=== PATIENT | male | born 1945 | race Hispanic/Latino ===

== ENCOUNTER 2017-05-23 14:08 | Emergency (ER) | payer MEDICARE, OTHER ==
--- NOTE | 2017-05-23 17:40 | Emergency Department Report ---
Entered by STEPHEN HANSEN, acting as scribe for MACK OCAMPO PA. Chief Complaint: Urogenital-Male Stated Complaint: GROIN PAIN Time Seen by Provider: 05/23/17 16:55 - HPI History of Present Illness: Patient c/o gradually worsening left testicular swelling with associated 6/10 pain for 15 days. Patient states he was recently seen at the [facility] for similar complaint, and had an US done of left testicle. Reports they found an infection in his left testicle. He notes he was prescribed antibiotics and completed them with no relief. Patient also c/o lower abdominal pain that radiates to left groin area. Notes Hx of using OTC villatoro catheters for months and he states he believes his pain is caused by catheter use. Notes he uses a catheter intermittently if he can't urinate on his own Reports 1 episode of bloody penile discharge. Patient states he believes the blood came from the sores caused by using the catheters Reports dysuria Notes appointment with [facility] urologist this month. - ROS Review of Systems: All systems are negative unless stated in the HPI above. - Exam Vital Signs: Vital Signs 05/23/17 16:24 Temperature 98.2 F Pulse Rate 86 Respiratory 20 Rate Blood Pressure 123/76 O2 Sat by Pulse 98 Oximetry Physical Exam: GENERAL: Patient is alert and oriented x 3. No apparent distress, normal gait, atraumatic. ABDOMEN: Soft, nondistended. Nontender to palpation on all quadrants. : 5 cm mass on left testicular present that is erythematous and tender to palpation. No bleeding or penile discharge noted. Left groin tenderness MSE screening note: Focused history and physical exam performed. Due to findings the following was ordered: see below ED Medical Decision Making - Medical Decision Making Patient screened by provider in triage area. Labs and US of left testicle will be ordered and sent in for patient. Patient sent to be seen by MD on main ED side. ED Disposition for MSE Condition: Stable This documentation as recorded by the scribe,STEPHEN HANSEN,accurately reflects the service I personally performed and the decisions made by DAMARIS gao OYINLOLA A, PA.
--- NOTE | 2017-05-23 18:56 | Ultrasound Report ---
FINAL REPORT PROCEDURE: US TESTICULAR DOPPLER COMP TECHNIQUE: Real-time neal-scale and color flow Doppler sonography in multiple planes of the scrotum, testicles, and epididymes was performed. Velocity spectral waveform analysis Doppler imaging of the arterial inflow and venous outflow of the testicles was performed with image documentation. [place] 52341 [place] [address]32 HISTORY: test swelling/pain COMPARISON: No prior studies are available for comparison. FINDINGS: Echogenicity of the right and left testicles appears normal. No discrete masses are identified. There is abnormal heterogeneous increased density superior aspect of the left hemiscrotum. I cannot exclude a scrotal hernia. Epididymis bilaterally appear normal with the exception of 2 millimeters cyst in the right epididymal head. No evidence of hydroceles. The right testicle measures 3.0 x 1.7 x 2.9 centimeter. The left testicle measures 2.4 x 2.1 x 3.2 centimeters. Arterial flow is visualized in both testicles with Doppler imaging. There were no venous flow patterns registered. IMPRESSION: Testicles are unremarkable. Heterogeneous density seen in the left hemiscrotum in addition to a normal-appearing left testicle. I cannot exclude a scrotal hernia. Consider CT scan of the pelvis extending to the scrotum for further evaluation Small epididymal cyst visualized on the right.
[2017-05-23 22:22] LABS: Bacteria,Urine 1+ /HPF (Negative); Bilirubin,Urine NEG (Negative); Blood,Urine NEG (Negative); Ketones,Urine NEG (Negative); Leukocyte Esterase,Urine LG (Negative); Mucus,Urine 1+ /HPF; Nitrite,Urine NEG (Negative); Protein,Urine <15 mg/dL mg/dL (Negative); Urobilinogen,Urine < 2.0 mg/dL (<2.0)
[2017-05-23 23:10] LABS: Basophils % (Auto) 0.4 % (0.0-1.8); Eosinophils % (Auto) 2.2 % (0.0-4.3); Hematocrit 37.2 % (35.5-45.6); Hemoglobin 12.2 gm/dl (11.8-15.2); Mean Corpuscular HGB Conc 33 % (32-34); Mean Corpuscular Hemoglobin 32 pg (28-32); Mean Corpuscular Volume 96 fl (84-94); Platelet Count 346 K/mm3 (140-440); Red Blood Count 3.87 M/mm3 (3.65-5.03); Red Cell Distribution Width 14.4 % (13.2-15.2); White Blood Count 7.4 K/mm3 (4.5-11.0)
[2017-05-23 23:28] LABS: Anion Gap 15 mmol/L; BUN/Creatinine Ratio 22.85; Blood Urea Nitrogen 16 mg/dL (9-20); Calcium 9.3 mg/dL (8.4-10.2); Carbon Dioxide 26 mmol/L (22-30); Chloride 102.2 mmol/L (98-107); Glucose 134 mg/dL (75-100); Potassium 3.9 mmol/L (3.6-5.0); Sodium 139 mmol/L (137-145)
--- NOTE | 2017-05-23 23:35 | Emergency Department Report ---
ED Male HPI - General Chief complaint: Urogenital-Male Stated complaint: GROIN PAIN Time Seen by Provider: 05/23/17 22:17 Source: patient Mode of arrival: Ambulatory Limitations: No Limitations - History of Present Illness Initial comments: 71-year-old male with a past medical history of hypertension and "prostate problems" presents to the hospital complaints of left testicular and inguinal pain 15 days. Pain is intermittent, rated 6/10 in intensity, worse palpation. Positive associated left scrotal swelling. Patient states he has had intermittent left lower abdomen swelling that resolved spontaneously. Last week he had a ultrasound done at the [facility] but does not know the results. Patient also completed a course of antibiotics on November 14. He is scheduled to follow with urology. Patient has a history of chronic urinary retention and has to self cath almost on a daily basis when he is unable to urinate. He complains of soreness to his urethra he thinks might of been caused by cathing. - Related Data Home Medications Medication Instructions Recorded Confirmed Last Taken Ascorbic Acid [Vitamin C] 250 mg PO QDAY 06/30/16 05/23/17 06/30/16 Previous Rx's Medication Instructions Recorded Last Taken Type Nitrofurantoin [place]/M-Cryst 100 mg PO Q12HR #14 capsule 05/24/17 Unknown Rx [Macrobid CAP] Allergies Allergy/AdvReac Type Severity Reaction Status Date / Time No Known Allergies Allergy Verified 06/30/16 08:17 ED Review of Systems ROS: Stated complaint: GROIN PAIN Other details as noted in HPI Comment: All other systems reviewed and negative Other: Constitutional: No fevers chills or weight loss Eyes: No eye pain visual changes or discharge ENT: No ear pain or throat pain Neck: Denies pain Respiratory: Denies cough wheezing shortness of breath Cardiovascular: Denies chest pain, palpitations, syncope GI: Denies nausea, vomiting, diarrhea :as per hpi Musculoskeletal: Denies back pain Skin: Denies rash, lesions, erythema Neurologic: Denies headache, numbness, weakness Psychiatric: Denies suicidal ideation, hallucinations ED Past Medical Hx - Past Medical History Hx Hypertension: Yes (controlled) Additional medical history: prostate problems - Surgical History Additional Surgical History: left knee replacement - Social History Smoking Status: Never Smoker Substance Use Type: None - Medications Home Medications: Home Medications Medication Instructions Recorded Confirmed Last Taken Type Ascorbic Acid [Vitamin C] 250 mg PO QDAY 06/30/16 05/23/17 06/30/16 History Nitrofurantoin [place]/M-Cryst 100 mg PO Q12HR #14 capsule 05/24/17 Unknown Rx [Macrobid CAP] ED Physical Exam - General Limitations: No Limitations - Other Other exam information: General: No limitations, patient is alert in no acute distress Head exam: Atraumatic, normocephalic Eyes exam: Normal appearance, pupils equal reactive to light, extraocular movements intact ENT: Moist mucous membrane, normal oropharynx Neck exam: Normal inspection, full range of motion, no meningismus nontender Respiratory exam: Clear to auscultation bilateral, no wheezes, rales, crackles Cardiovascular: Normal rate and rhythm, normal heart sounds Abdomen: Soft, nondistended, mild tenderness in the left lower suprapubic area without signs of herniation. Normal bowel sounds no rebound or guarding : Left scrotal firmness, swelling, mild tenderness and erythema. No penile lesions or discharge. Right scrotum/testicle nontender without swelling Extremity: Full range of motion normal inspection no deformity Back: Normal Inspection, full range of motion, no tenderness Neurologic: Alert, oriented x3, cranial nerves intact, no motor or sensory deficit Psychiatric: normal affect, normal mood Skin: Warm, dry, intact ED Course Vital Signs 05/23/17 05/23/17 05/23/17 16:24 22:44 22:52 Temperature 98.2 F Pulse Rate 86 75 Respiratory 20 10 L Rate Blood Pressure 123/76 185/89 O2 Sat by Pulse 98 100 100 Oximetry 05/23/17 05/23/17 05/24/17 23:00 23:20 00:56 Temperature Pulse Rate 71 70 79 Respiratory 20 18 Rate Blood Pressure 149/72 185/89 O2 Sat by Pulse 97 98 96 Oximetry 05/24/17 05/24/17 01:00 01:30 Temperature Pulse Rate 75 70 Respiratory 10 L 15 Rate Blood Pressure 136/79 149/72 O2 Sat by Pulse 98 95 Oximetry - Reevaluation(s) Reevaluation #1: 05/23/17 23:36 Patient treated with Rocephin for UTI and CT pending. Patient declined pain medication at this time ED Medical Decision Making - Lab Data Result diagrams: 05/23/17 22:40 05/23/17 22:40 Lab Results 05/23/17 05/23/17 05/23/17 Range/Units 22:00 22:40 22:40 WBC 7.4 (4.5-11.0) K/mm3 RBC 3.87 (3.65-5.03) M/mm3 Hgb 12.2 (11.8-15.2) gm/dl Hct 37.2 (35.5-45.6) % MCV 96 H (84-94) fl MCH 32 (28-32) pg MCHC 33 (32-34) % RDW 14.4 (13.2-15.2) % Plt Count 346 (140-440) K/mm3 Lymph % (Auto) 28.6 (13.4-35.0) % [place] % (Auto) 12.5 H (0.0-7.3) % Eos % (Auto) 2.2 (0.0-4.3) % Baso % (Auto) 0.4 (0.0-1.8) % Lymph # 2.1 (1.2-5.4) K/mm3 [place] # 0.9 H (0.0-0.8) K/mm3 Eos # 0.2 (0.0-0.4) K/mm3 Baso # 0.0 (0.0-0.1) K/mm3 Seg Neutrophils % 56.3 (40.0-70.0) % Seg Neutrophils # 4.2 (1.8-7.7) K/mm3 Sodium 139 (137-145) mmol/L Potassium 3.9 (3.6-5.0) mmol/L Chloride 102.2 (98-107) mmol/L Carbon Dioxide 26 (22-30) mmol/L Anion Gap 15 mmol/L BUN 16 (9-20) mg/dL Creatinine 0.7 L (0.8-1.5) mg/dL Estimated GFR > 60 ml/min BUN/Creatinine Ratio 22.85 % Glucose 134 H (75-100) mg/dL Calcium 9.3 (8.4-10.2) mg/dL Urine Color Yellow (Yellow) Urine Turbidity Clear (Clear) Urine pH 5.0 (5.0-7.0) Ur Specific [place] 1.024 (1.003-1.030) Urine Protein <15 mg/dl (Negative) mg/dL Urine Glucose (UA) Neg (Negative) mg/dL Urine Ketones Neg (Negative) mg/dL Urine Blood Neg (Negative) Urine Nitrite Neg (Negative) Urine Bilirubin Neg (Negative) Urine Urobilinogen < 2.0 (<2.0) mg/dL Ur Leukocyte Esterase Lg (Negative) Urine WBC (Auto) 23.0 H (0.0-6.0) /HPF Urine RBC (Auto) 43.0 (0.0-6.0) /HPF U Epithel Cells (Auto) 3.0 (0-13.0) /HPF Urine Bacteria (Auto) 1+ (Negative) /HPF Urine Mucus 1+ /HPF - Radiology Data Radiology results: report reviewed Ultrasound testicular Doppler: Testicles unremarkable. Heterogeneous density seen in the left hemiscrotum addition to a normal-appearing left testicle. Cannot exclude a scrotal hernia. CT recommended. Small epididymal cyst visualized CT abdomen and pelvis IV contrast: Cholelithiasis. No cholecystitis. 2 mm stone in the lower pole of the left kidney. No hydronephrosis. Bowel unremarkable. Last ate a large heterogeneous. No discrete mass. Mass in the right inguinal fossa measuring 15 mm which could be in a large pelvic lymph no. Left inguinal hernia containing fat only. - Medical Decision Making Plan to discharge patient home. Ultrasound and CT did not reveal any acute infection instead suggestive of a inguinal hernia. Pt will be provided a copy of his results to follow-up with his doctors. In addition to urology a surgeon will be recommended. ABX for uti will be prescribed. Cultures pending - Differential Diagnosis scrotal abscess, cellulitis, torsion, hernia Critical Care Time: No Critical care attestation.: If time is entered above; I have spent that time in minutes in the direct care of this critically ill patient, excluding procedure time. ED Disposition Clinical Impression: Left inguinal hernia, UTI (urinary tract infection), Prostate hypertrophy, Chronic retention of urine Disposition: - TO HOME OR SELFCARE Is pt being admited?: No Does the pt Need Aspirin: No Condition: Stable Instructions: Inguinal Hernia (ED), Urinary Tract Infection in Men (ED) Additional Instructions: Take the antibodies as prescribed for urinary tract infection. Follow-up with the surgeon and urologist provided or the doctors affiliated with [facility]. Return if symptoms worsen pain Prescriptions: Nitrofurantoin [place]/M-Cryst [Macrobid CAP] 100 mg PO Q12HR #14 capsule Referrals: your, urologist [Other] - 3-5 Days SCOTT SLOAN MD [Staff Physician] - 3-5 Days (urologist) DAWN DENNIS MD [Staff Physician] - 3-5 Days (Surgeon) Time of Disposition: 02:19
[2017-05-23] MEDS ORDERED: NACL ONE (23:40)
--- NOTE | 2017-05-24 01:17 | Cat Scan Report ---
FINAL REPORT PROCEDURE: CT ABDOMEN PELVIS W CON TECHNIQUE: Computerized axial tomography of the abdomen and pelvis was performed after the IV injection of iodinated nonionic contrast. HISTORY: left scrotal pain, swelling ? hernia COMPARISON: No prior studies are available for comparison. FINDINGS: Visualized lower thorax: No significant abnormality. Liver: Normal size and attenuation. Spleen: Normal size and attenuation. Gallbladder and biliary system: There is cholelithiasis. There is no specific evidence of acute cholecystitis. There is no biliary ductal dilatation.. Pancreas: Normal. Adrenals: Normal. Kidneys: There is a 2 millimeter stone in the lower pole of the left kidney there is no hydronephrosis.. GI tract: There is no bowel obstruction, colitis or enteritis. The appendix is normal.. Lymph nodes and mesentery: Normal. Vasculature: Normal. Bladder: Normal. Reproductive organs: Prostate is enlarged and heterogeneous. No discrete mass is seen.. Peritoneum: There is no ascites or free air. There is the mass in the right inguinal fossa measuring 15 millimeters which could be an enlarged pelvic lymph node.. Musculoskeletal structures: No significant abnormality. Other: There is a left inguinal hernia containing fat only.. IMPRESSION: There is cholelithiasis. There is no specific evidence of acute cholecystitis. There is no biliary ductal dilatation.. There is a 2 millimeter stone in the lower pole of the left kidney there is no hydronephrosis.. There is no bowel obstruction, colitis or enteritis. The appendix is normal.. Prostate is enlarged and heterogeneous. No discrete mass is seen.. There is no ascites or free air. There is the mass in the right inguinal fossa measuring 15 millimeters which could be an enlarged pelvic lymph node.. There is a left inguinal hernia containing fat only..
[2017-05-24 02:28] VITALS: BP 135/81
[2017-05-24] MEDS ORDERED: MACROBID PO ONE (02:32)
== END 2017-05-24 02:42 | disposition home or self-care (01) ==
LOC: ED 14:08
DX: K40.90 Unilateral inguinal hernia, without obstruction or gangrene, not specified as recurrent (principal); N40.1 Benign prostatic hyperplasia with lower urinary tract symptoms; I10 Essential (primary) hypertension; N39.0 Urinary tract infection, site not specified; Z96.652 Presence of left artificial knee joint
CPT/HCPCS: 36415; 74177; 80048; 81001; 85025; 87086; 93975; 99284; Q9967

== ENCOUNTER 2018-01-04 11:49 | Emergency (ER) | payer MEDICARE, OTHER ==
[2018-01-04 11:58] VITALS: BP 133/75
--- NOTE | 2018-01-04 14:29 | Emergency Department Report ---
- General Chief Complaint: Upper Respiratory Infection Stated Complaint: COLD/COUGH Time Seen by Provider: 01/04/18 14:25 Source: patient Mode of arrival: Ambulatory Limitations: No Limitations - History of Present Illness MD Complaint: fever, cough, sore throat, rhinorrhea, nasal congestion, sinus pain -: week(s) (3) Severity: moderate Severity scale (0 -10): 5 Quality: burning Consistency: constant, intermittent Improves With: OTC cold medicine, OTC nasal spray, cough suppressant Context: sick contacts Associated Symptoms: fever, cough. denies: stiff neck, rash, confusion, right sweats Treatments Prior to Arrival: "cold medicine" - Related Data Home Medications Medication Instructions Recorded Confirmed Last Taken Ascorbic Acid [Vitamin C] 250 mg PO QDAY 06/30/16 05/23/17 06/30/16 Previous Rx's Medication Instructions Recorded Last Taken Type Nitrofurantoin [place]/M-Cryst 100 mg PO Q12HR #14 capsule 05/24/17 Unknown Rx [Macrobid CAP] ALBUTEROL Inhaler [ProAir HFA 2 puff IH ONCE #1 inha 01/04/18 Unknown Rx Inhaler] Amoxicillin/Potassium Clav 1 each PO BID #14 tablet 01/04/18 Unknown Rx [Augmentin 875-125 Tablet] Benzonatate [Tessalon Perles] 100 mg PO Q8HR #30 capsule 01/04/18 Unknown Rx Prednisone [predniSONE 5 mg (6-Day 5 mg PO .TAPER #1 tab.ds.pk 01/04/18 Unknown Rx Pack, 21 Tabs)] Allergies Allergy/AdvReac Type Severity Reaction Status Date / Time No Known Allergies Allergy Verified 06/30/16 08:17 ED Review of Systems ROS: Stated complaint: COLD/COUGH Other details as noted in HPI Comment: All other systems reviewed and negative ENT: congestion Respiratory: cough. denies: shortness of breath Cardiovascular: denies: chest pain, palpitations ED Past Medical Hx - Past Medical History Previous Medical History?: Yes Hx Hypertension: Yes (controlled) Additional medical history: prostate problems, self cath @ times - Surgical History Past Surgical History?: Yes Additional Surgical History: left knee replacement - Social History Smoking Status: Never Smoker Substance Use Type: Alcohol, Non Opiate Pain, Prescribed, Other - Medications Home Medications: Home Medications Medication Instructions Recorded Confirmed Last Taken Type Ascorbic Acid [Vitamin C] 250 mg PO QDAY 06/30/16 05/23/17 06/30/16 History Nitrofurantoin [place]/M-Cryst 100 mg PO Q12HR #14 capsule 05/24/17 Unknown Rx [Macrobid CAP] ALBUTEROL Inhaler [ProAir HFA 2 puff IH ONCE #1 inha 01/04/18 Unknown Rx Inhaler] Amoxicillin/Potassium Clav 1 each PO BID #14 tablet 01/04/18 Unknown Rx [Augmentin 875-125 Tablet] Benzonatate [Tessalon Perles] 100 mg PO Q8HR #30 capsule 01/04/18 Unknown Rx Prednisone [predniSONE 5 mg (6-Day 5 mg PO .TAPER #1 tab.ds.pk 01/04/18 Unknown Rx Pack, 21 Tabs)] ED Physical Exam - General Limitations: No Limitations General appearance: alert, in no apparent distress - Head Head exam: Present: atraumatic - Respiratory Respiratory exam: Present: normal lung sounds bilaterally - Cardiovascular Cardiovascular Exam: Present: regular rate - GI/Abdominal GI/Abdominal exam: Present: soft ED Course Vital Signs 01/04/18 11:55 Temperature 97.6 F Pulse Rate 84 Respiratory 20 Rate Blood Pressure 133/75 O2 Sat by Pulse 96 Oximetry Critical care attestation.: If time is entered above; I have spent that time in minutes in the direct care of this critically ill patient, excluding procedure time. ED Disposition Clinical Impression: Acute bronchitis Qualifiers: Bronchitis organism: other organism Qualified Code(s): J20.8 - Acute bronchitis due to other specified organisms Disposition: DC-01 TO HOME OR SELFCARE Is pt being admited?: No Does the pt Need Aspirin: No Condition: Stable Instructions: Acute Bronchitis (ED) Prescriptions: ALBUTEROL Inhaler [ProAir HFA Inhaler] 2 puff IH ONCE #1 inha Amoxicillin/Potassium Clav [Augmentin 875-125 Tablet] 1 each PO BID #14 tablet Benzonatate [Tessalon Perles] 100 mg PO Q8HR #30 capsule Prednisone [predniSONE 5 mg (6-Day Pack, 21 Tabs)] 5 mg PO .TAPER #1 tab.ds.pk Referrals: PRIMARY CARE, [Primary Care Provider] - 3-5 Days
[2018-01-04] MEDS ORDERED: PROAIR IH ONE (15:30)
[2018-01-04] MEDS ORDERED: PROVENTIL IH ONE (15:30)
== END 2018-01-04 14:40 | disposition home or self-care (01) ==
LOC: ED 11:49
DX: J20.8 Acute bronchitis due to other specified organisms (principal); Z96.652 Presence of left artificial knee joint; I10 Essential (primary) hypertension
CPT/HCPCS: 99282

== ENCOUNTER 2018-01-11 09:57 | Emergency (ER) | payer MEDICARE, OTHER ==
[2018-01-11 10:30] VITALS: BP 143/88
--- NOTE | 2018-01-11 12:20 | Emergency Department Report ---
Blank Doc - Documentation Documentation: Patient is a 72-year-old male who is presenting with cough, congestion for approximately one week. Patient was here a week ago who placed on Augmentin he took his last antibiotic today but states he still is feeling ill. Patient has productive cough of yellow sputum. Denies any fever nausea vomiting. Chest x-ray will be performed to rule out worsening lung disease and will be followed about a VINAY
--- NOTE | 2018-01-11 13:07 | XRay Report ---
ROUTINE CHEST, TWO VIEWS: HISTORY: Cough. The trachea, heart, mediastinal contour, lung rojas and bony thorax are unremarkable. IMPRESSION: Unremarkable chest x-ray.
[2018-01-11] MEDS ORDERED: TESSALON PERLES PO ONE (13:26)
--- NOTE | 2018-01-11 13:31 | Emergency Department Report ---
- General Chief Complaint: Upper Respiratory Infection Stated Complaint: SINUS INFECTION Time Seen by Provider: 01/11/18 12:11 Source: patient Mode of arrival: Ambulatory Limitations: No Limitations - History of Present Illness Initial Comments: This is a 72-year-old male nontoxic, well nourished in appearance, no acute signs of distress presents to the ED with c/o of productive cough, nasal congestion, and rhinorrhea x1 week. Patient that he was here last week and received Augmentin, prednisone, albuterol and Tessalon Perles with no relief. Patient symptoms are worsening. Patient denies any chest pain, short of breath , fever, chills, nausea, vomiting, headache, stiff neck. She denies any calf pain or calf tenderness. Denies any recent travels. Patient describes productive cough as yellow mucus production. He denies any allergies or significant past medical history. MD Complaint: cough, rhinorrhea, nasal congestion -: week(s) (1) Severity: mild Consistency: constant Improves With: nothing Worsens With: nothing Associated Symptoms: rhinorrhea, nasal congestion, cough. denies: fever, chills , myalgias, diaphoresis, headache, sore throat, stiff neck, chest pain, shortness of breath, abdominal pain, nausea, vomiting, diarrhea, dysuria, rash, confusion, right sweats, weight loss, epistaxis, hoarseness, ear pain Treatments Prior to Arrival: none - Related Data Home Medications Medication Instructions Recorded Confirmed Last Taken Ascorbic Acid [Vitamin C] 250 mg PO QDAY 06/30/16 05/23/17 06/30/16 Previous Rx's Medication Instructions Recorded Last Taken Type Nitrofurantoin [place]/M-Cryst 100 mg PO Q12HR #14 capsule 05/24/17 Unknown Rx [Macrobid CAP] ALBUTEROL Inhaler [ProAir HFA 2 puff IH ONCE #1 inha 01/04/18 Unknown Rx Inhaler] Amoxicillin/Potassium Clav 1 each PO BID #14 tablet 01/04/18 Unknown Rx [Augmentin 875-125 Tablet] Benzonatate [Tessalon Perles] 100 mg PO Q8HR #30 capsule 01/04/18 Unknown Rx Prednisone [predniSONE 5 mg (6-Day 5 mg PO .TAPER #1 tab.ds.pk 01/04/18 Unknown Rx Pack, 21 Tabs)] Azithromycin [Zithromax Z-RAMILA] 250 mg PO DAILY #6 tablet 01/11/18 Unknown Rx Allergies Allergy/AdvReac Type Severity Reaction Status Date / Time No Known Allergies Allergy Verified 06/30/16 08:17 ED Review of Systems ROS: Stated complaint: SINUS INFECTION Other details as noted in HPI Constitutional: denies: chills, fever Eyes: denies: eye pain, eye discharge, vision change ENT: denies: ear pain, throat pain Respiratory: cough. denies: shortness of breath, wheezing Cardiovascular: denies: chest pain, palpitations Endocrine: no symptoms reported Gastrointestinal: denies: abdominal pain, nausea, diarrhea Genitourinary: denies: urgency, dysuria Musculoskeletal: denies: back pain, joint swelling, arthralgia Skin: denies: rash, lesions Neurological: denies: headache, weakness, paresthesias Psychiatric: denies: anxiety, depression Hematological/Lymphatic: denies: easy bleeding, easy bruising ED Past Medical Hx - Past Medical History Hx Hypertension: Yes (controlled) Additional medical history: prostate problems, self cath @ times - Surgical History Past Surgical History?: Yes Additional Surgical History: left knee replacement - Social History Smoking Status: Never Smoker Substance Use Type: None - Medications Home Medications: Home Medications Medication Instructions Recorded Confirmed Last Taken Type Ascorbic Acid [Vitamin C] 250 mg PO QDAY 06/30/16 05/23/17 06/30/16 History Nitrofurantoin [place]/M-Cryst 100 mg PO Q12HR #14 capsule 05/24/17 Unknown Rx [Macrobid CAP] ALBUTEROL Inhaler [ProAir HFA 2 puff IH ONCE #1 inha 01/04/18 Unknown Rx Inhaler] Amoxicillin/Potassium Clav 1 each PO BID #14 tablet 01/04/18 Unknown Rx [Augmentin 875-125 Tablet] Benzonatate [Tessalon Perles] 100 mg PO Q8HR #30 capsule 01/04/18 Unknown Rx Prednisone [predniSONE 5 mg (6-Day 5 mg PO .TAPER #1 tab.ds.pk 01/04/18 Unknown Rx Pack, 21 Tabs)] Azithromycin [Zithromax Z-RAMILA] 250 mg PO DAILY #6 tablet 01/11/18 Unknown Rx ED Physical Exam - General Limitations: No Limitations General appearance: alert, in no apparent distress - Head Head exam: Present: atraumatic, normocephalic - Eye Eye exam: Present: normal appearance, PERRL, EOMI Pupils: Present: normal accommodation - ENT ENT exam: Present: normal exam, normal orophraynx, mucous membranes moist, TM's normal bilaterally, normal external ear exam - Neck Neck exam: Present: normal inspection, full ROM. Absent: tenderness, meningismus, lymphadenopathy, thyromegaly - Respiratory Respiratory exam: Present: normal lung sounds bilaterally. Absent: respiratory distress, wheezes, rales, rhonchi, stridor, chest wall tenderness, accessory muscle use, decreased breath sounds, prolonged expiratory - Cardiovascular Cardiovascular Exam: Present: regular rate, normal rhythm, normal heart sounds. Absent: bradycardia, tachycardia, irregular rhythm, systolic murmur, diastolic murmur, rubs, gallop - GI/Abdominal GI/Abdominal exam: Present: soft, normal bowel sounds. Absent: distended, tenderness, guarding, rebound, rigid, diminished bowel sounds - Rectal Rectal exam: Present: deferred - Extremities Exam Extremities exam: Present: normal inspection - Back Exam Back exam: Present: normal inspection - Neurological Exam Neurological exam: Present: alert, oriented X3 - Psychiatric Psychiatric exam: Present: normal affect, normal mood - Skin Skin exam: Present: warm, dry, intact, normal color. Absent: rash ED Course Vital Signs 01/11/18 10:28 Temperature 98.4 F Pulse Rate 84 Respiratory 18 Rate Blood Pressure 143/88 O2 Sat by Pulse 96 Oximetry - Reevaluation(s) Reevaluation #1: 01/11/18 13:33 Patient is speaking in full sentences with no signs of distress noted. - Consultations Consultation #1: 01/11/18 13:33 Patient has been consulted with Dr. Barbosa about patient history, physical exam , and labs and examined and screened patient and agrees to ED plan of care and discharge plan of care. ED Medical Decision Making - Medical Decision Making this is a 72-year-old male that presents with upper respiratory infection. Patient is stable and was examined by me. Should he finished his last dose of Augmentin. Due to symptoms worsening I will treat patient with atypical upper respiratory infection with azithromycin. Chest x-ray obtained and negative. Patient stated he still has his prednisone that he is taking and does have albuterol. I instructed the patient to continue taking albuterol and prednisone as prescribed. Patient was referred and was instructed to Follow-up with a primary care doctor in 3-5 days or if symptoms worsen and continue return to emergency room as soon as possible. At time of discharge, the patient does not seem toxic or ill in appearance. No acute signs of distress noted. Patient agrees to discharge treatment plan of care. No further questions noted by the patient. Critical care attestation.: If time is entered above; I have spent that time in minutes in the direct care of this critically ill patient, excluding procedure time. ED Disposition Clinical Impression: Upper respiratory infection Qualifiers: URI type: unspecified URI Qualified Code(s): J06.9 - Acute upper respiratory infection, unspecified Disposition: TO HOME OR SELFCARE Is pt being admited?: No Does the pt Need Aspirin: No Condition: Stable Instructions: Azithromycin (By mouth), Upper Respiratory Infection (ED) Additional Instructions: Follow-up with a primary care doctor in 3-5 days or if symptoms worsen and continue return to emergency room as soon as possible. Continue taking prednisone and albuterol as prescribed previously during her visit. Prescriptions: Azithromycin [Zithromax Z-RAMILA] 250 mg PO DAILY #6 tablet Referrals: PRIMARY CAREMD [Primary Care Provider] - 3-5 Days TIANNA HOGAN MD [Staff Physician] - 3-5 Days [facility] [place] [Outside] - 3-5 Days [facility] [Outside] - 3-5 Days Forms: Work/School Release Form(ED)
== END 2018-01-11 13:51 | disposition home or self-care (01) ==
LOC: ED 09:57
DX: J06.9 Acute upper respiratory infection, unspecified (principal); I10 Essential (primary) hypertension; Z96.652 Presence of left artificial knee joint
CPT/HCPCS: 71046; 99283

== ENCOUNTER 2018-02-25 12:13 | Emergency (ER) | payer MEDICARE, OTHER ==
--- NOTE | 2018-02-25 14:19 | Emergency Department Report ---
Minor Respiratory - HPI Chief Complaint: Upper Respiratory Infection Stated Complaint: COLD/COUGH/SNEEZING Time Seen by Provider: 02/25/18 13:53 Duration: 2 weeks Pain Location: Nose (congestion) Severity: mild Minor Respiratory: Yes Rhinorrhea, Yes Able to Tolerate Fluids, Yes Cough, No Sore Throat, No Ear Pain, No Sick Contacts, No Hemoptysis, No Chest Pain, No Shortness of Breath, No Fever Other History: This is a 72 year old male that presents with cough, sneezing, and rhinorrhea for 2 weeks. Patient states he was on antibiotics last month for URI infection and felt better until 2 weeks ago. He work at [employer] and is in and out of the building the entire shift and think that caused illness. He is taking vitamin C with no improvement of symptoms. Denies chest pain, SOB, nausea/vomiting, body aches, and fever. ED Review of Systems ROS: Stated complaint: COLD/COUGH/SNEEZING Other details as noted in HPI Constitutional: denies: chills, fever ENT: congestion. denies: ear pain, throat pain, dental pain, hearing loss, epistaxis Respiratory: cough. denies: shortness of breath, wheezing Cardiovascular: denies: chest pain, palpitations, edema, syncope Gastrointestinal: denies: abdominal pain, nausea, vomiting, diarrhea Neurological: denies: headache, weakness, numbness, paresthesias Psychiatric: denies: anxiety, depression ED Past Medical Hx - Past Medical History Hx Hypertension: Yes (controlled) Additional medical history: prostate problems, self cath @ times - Surgical History Additional Surgical History: left knee replacement - Social History Smoking Status: Never Smoker Substance Use Type: None - Medications Home Medications: Home Medications Medication Instructions Recorded Confirmed Last Taken Type Ascorbic Acid [Vitamin C] 250 mg PO QDAY 06/30/16 05/23/17 06/30/16 History Nitrofurantoin [place]/M-Cryst 100 mg PO Q12HR #14 capsule 05/24/17 Unknown Rx [Macrobid CAP] ALBUTEROL Inhaler [ProAir HFA 2 puff IH ONCE #1 inha 01/04/18 Unknown Rx Inhaler] Amoxicillin/Potassium Clav 1 each PO BID #14 tablet 01/04/18 Unknown Rx [Augmentin 875-125 Tablet] Benzonatate [Tessalon Perles] 100 mg PO Q8HR #30 capsule 01/04/18 Unknown Rx Prednisone [predniSONE 5 mg (6-Day 5 mg PO .TAPER #1 tab.ds.pk 01/04/18 Unknown Rx Pack, 21 Tabs)] Azithromycin [Zithromax Z-RAMILA] 250 mg PO DAILY #6 tablet 01/11/18 Unknown Rx Benzonatate [Tessalon Perles] 100 mg PO Q8HR PRN #30 capsule 02/25/18 Unknown Rx Fluticasone [Flonase] 1 spray NS QDAY #1 bottle 02/25/18 Unknown Rx Loratadine [Claritin] 10 mg PO DAILY #30 tablet 02/25/18 Unknown Rx Minor Respiratory Exam - Exam General: Vital signs noted. No distress. Alert and acting appropriately. HEENT: Yes Moist Mucous Membranes, Yes Rhinorrhea (clear discharge), No Pharyngeal Erythema, No Pharyngeal Exudates, No Conjuctival Injection, No Frontal Tenderness, No Maxillary Tenderness Ear: Neither TM Bulge, Neither TM Erythema, Neither EAC Pain, Neither EAC Discharge Neck: Yes Supple, No Adenopathy Lungs: Yes Good Air Exchange, Yes Cough, No Wheezes, No Ronchi, No Stridor, No Labored Respirations, No Retractions, No Use of Accessory Muscles, No Other Abnormal Lung Sounds Heart: Yes Regular, No Murmur Abdomen: Yes Normal Bowel Sounds, No Tenderness, No Peritoneal Signs Skin: No Rash, No Edema Neurologic: Alert and oriented, no deficits. Musculoskeletal: Unremarkable. ED Course Vital Signs 02/25/18 12:17 Temperature 97.7 F Pulse Rate 63 Respiratory 18 Rate Blood Pressure 146/66 O2 Sat by Pulse 98 Oximetry ED Medical Decision Making - Medical Decision Making 72 y.o. male that presents with URI symptoms. Patient examined by me and stable. No distress noted. Vitals stable. Mild congestion susceptible fo allergic rhinitis with post viral cough. Discharged home. Encouraged to do supportive care for URI. Start benzonatate, flonase, and claritin. Follow up with PCP in 2-3 days. Critical care attestation.: If time is entered above; I have spent that time in minutes in the direct care of this critically ill patient, excluding procedure time. ED Disposition Clinical Impression: Post-viral cough syndrome Rhinitis Qualifiers: Rhinitis type: allergic Allergic rhinitis trigger: food Qualified Code(s): J30.5 - Allergic rhinitis due to food Disposition: DC-01 TO HOME OR SELFCARE Is pt being admited?: No Does the pt Need Aspirin: No Condition: Stable Instructions: Allergic Rhinitis (ED) Additional Instructions: Increase fluid intake and rest. Wash hands frequently. Take claritin daily as need for symptom relief. Symptoms should improve in the next 3-7 days. Avoid triggers such as pollen and smoke. Use nasal saline spray to help control congestion and rinse nasal cavity, to improve breathing. F/U with Primary Care Provider in 24-72 hours. Return to ER if fever, SOB, or difficulty breathing after 48 hours of supportive care. Prescriptions: Benzonatate [Tessalon Perles] 100 mg PO Q8HR PRN #30 capsule PRN Reason: Cough Fluticasone [Flonase] 1 spray NS QDAY #1 bottle Loratadine [Claritin] 10 mg PO DAILY #30 tablet Referrals: [facility] [Outside] - 3-5 Days [facility] [Provider Group] - 3-5 Days [facility] [Provider Group] - 3-5 Days Time of Disposition: 14:56 Print Language: KHMER
[2018-02-25 15:09] VITALS: BP 166/83
== END 2018-02-25 15:10 | disposition home or self-care (01) ==
LOC: ED 12:13
DX: J30.5 Allergic rhinitis due to food (principal); G93.3 Postviral and related fatigue syndromes; B34.9 Viral infection, unspecified; I10 Essential (primary) hypertension
CPT/HCPCS: 99282

== ENCOUNTER 2018-06-22 08:37 | Emergency (ER) | payer MEDICARE, OTHER ==
[2018-06-22 09:07] LABS: Basophils % (Auto) 0.2 % (0.0-1.8); Eosinophils # (Auto) 0.1 K/mm3 (0.0-0.4); Eosinophils % (Auto) 1.3 % (0.0-4.3); Hematocrit 39.8 % (35.5-45.6); Hemoglobin 13.6 gm/dl (11.8-15.2); Lymphocytes # (Auto) 1.7 K/mm3 (1.2-5.4); Lymphocytes % (Auto) 31.7 % (13.4-35.0); Mean Corpuscular HGB Conc 34 % (32-34); Mean Corpuscular Hemoglobin 33 pg (28-32); Mean Corpuscular Volume 95 fl (84-94); Monocytes # (Auto) 0.6 K/mm3 (0.0-0.8); Monocytes % (Auto) 10.8 % (0.0-7.3); Platelet Count 206 K/mm3 (140-440); Red Blood Count 4.18 M/mm3 (3.65-5.03); Red Cell Distribution Width 14.4 % (13.2-15.2)
[2018-06-22 09:23] LABS: BUN/Creatinine Ratio 28; Blood Urea Nitrogen 17 mg/dL (9-20); Hemolysis Index 5
--- NOTE | 2018-06-22 12:19 | Emergency Department Report ---
Chief Complaint: Chest Pain Stated Complaint: POSSIBLE STROKE Time Seen by Provider: 06/22/18 12:07 - HPI History of Present Illness: 72-year-old male presents to the emergency department with complaints of some intermittent left-sided chest pains, indigestion with increased belching , increased fatigue. All the symptoms going on for the past few weeks. He has a history of hypertension and some prostate issues. He goes to [facility] for [facility] needs. He has not taken anything for her symptoms prior to presentation. He denies any headache, slurred speech, numbness. No tobacco or illicit drug use or abuse. - ROS Review of Systems: Positive for chest pain, indigestion, increased fatigue Negative for fever, nausea, vomiting, shortness of breath, headache - Exam Vital Signs: Vital Signs 06/22/18 08:40 Temperature 98.0 F Pulse Rate 71 Respiratory 16 Rate Blood Pressure 163/85 O2 Sat by Pulse 96 Oximetry Physical Exam: Patient is awake and alert in no acute distress. Heart and lung sounds are normal to auscultation. Cranial nerves II through XII grossly intact. MSE screening note: Focused history and physical exam performed. Due to findings the following was ordered: EKG does not look like any type of ST elevation DC or dysrhythmia. So far the patient's labs have been unremarkable including a negative troponin. However the patient is 72 years old with some left-sided chest pains intermittently and I feel is better served on the main side of the emergency department. ED Medical Decision Making - Lab Data Result diagrams: 06/22/18 09:00 06/22/18 08:58 ED Disposition for MSE Condition: Stable Referrals: PRIMARY CARE [Primary Care Provider] - 3-5 Days
--- NOTE | 2018-06-22 13:56 | XRay Report ---
ROUTINE CHEST, TWO VIEWS: HISTORY: chest pain. The trachea, heart, mediastinal contour, lung rojas and bony thorax are unremarkable. IMPRESSION: Unremarkable chest x-ray.
--- NOTE | 2018-06-22 17:35 | Emergency Department Report ---
ED Chest Pain HPI - General Chief Complaint: Chest Pain Stated Complaint: POSSIBLE STROKE Time Seen by Provider: 06/22/18 12:07 Source: patient, RN notes reviewed Mode of arrival: Ambulatory Limitations: No Limitations - History of Present Illness Initial Comments: This is a 72-year-old gentleman who typically follows with the [facility], has a past medical history of hypertension. He presents to the ER with the complaints of epigastric burning and indigestion, and shortness of breath when he pushes heavy objects at work. Of note, he has no pain while pushing a heavy objects at work. His symptoms have been intermittent for the past 2 months. They do not radiate anywhere, and aside from pushing heavy objects at work, did not have exacerbating or relieving factors. He denies nausea, vomiting, diaphoresis, recent aspirin use , recent cocaine use, leg pain, leg swelling, recent travel, recent immobility. He denies a family history of cardiac disease. He presents to the ER today "to get checked out." He indicates his symptoms are not new, worsened or different. MD Complaint: chest pain -: Gradual, month(s) Quality: other Consistency: intermittent Improves With: other Worsens With: other Context: other Aspirin use within the Past 7 Days: (0) No - Related Data On Oral Contraceptives: No Home Medications Medication Instructions Recorded Confirmed Last Taken Ascorbic Acid [Vitamin C] 250 mg PO QDAY 06/30/16 05/23/17 06/30/16 Previous Rx's Medication Instructions Recorded Last Taken Type Nitrofurantoin [place]/M-Cryst 100 mg PO Q12HR #14 capsule 05/24/17 Unknown Rx [Macrobid CAP] ALBUTEROL Inhaler [ProAir HFA 2 puff IH ONCE #1 inha 01/04/18 Unknown Rx Inhaler] Amoxicillin/Potassium Clav 1 each PO BID #14 tablet 01/04/18 Unknown Rx [Augmentin 875-125 Tablet] Benzonatate [Tessalon Perles] 100 mg PO Q8HR #30 capsule 01/04/18 Unknown Rx Prednisone [predniSONE 5 mg (6-Day 5 mg PO .TAPER #1 tab.ds.pk 01/04/18 Unknown Rx Pack, 21 Tabs)] Azithromycin [Zithromax Z-RAMILA] 250 mg PO DAILY #6 tablet 01/11/18 Unknown Rx Benzonatate [Tessalon Perles] 100 mg PO Q8HR PRN #30 capsule 02/25/18 Unknown Rx Fluticasone [Flonase] 1 spray NS QDAY #1 bottle 02/25/18 Unknown Rx Loratadine [Claritin] 10 mg PO DAILY #30 tablet 02/25/18 Unknown Rx Aspirin [Aspirin BABY CHEW TAB] 81 mg PO QDAY #30 tab.chew 06/22/18 Unknown Rx Allergies Allergy/AdvReac Type Severity Reaction Status Date / Time No Known Allergies Allergy Verified 06/30/16 08:17 Heart Score - HEART Score History: Slightly suspicious EKG: Non-specific Age: > 65 Risk factors: 1-2 risk factors Troponin: < normal limit HEART Score: 4 - Critical Actions Critical Actions: 4-6 pts:12-16.6% risk of adverse cardiac event. Should be admitted ED Review of Systems ROS: Stated complaint: POSSIBLE STROKE Other details as noted in HPI Constitutional: denies: diaphoresis Eyes: denies: eye discharge Respiratory: shortness of breath Cardiovascular: chest pain Gastrointestinal: denies: vomiting Genitourinary: denies: dysuria, testicular pain Musculoskeletal: denies: back pain Skin: denies: lesions Neurological: denies: weakness Psychiatric: anxiety ED Past Medical Hx - Past Medical History Previous Medical History?: Yes Hx Hypertension: Yes (controlled) Additional medical history: prostate problems, self cath @ times - Surgical History Past Surgical History?: Yes Additional Surgical History: left knee replacement - Social History Smoking Status: Never Smoker Substance Use Type: Alcohol - Medications Home Medications: Home Medications Medication Instructions Recorded Confirmed Last Taken Type Ascorbic Acid [Vitamin C] 250 mg PO QDAY 06/30/16 05/23/17 06/30/16 History Nitrofurantoin [place]/M-Cryst 100 mg PO Q12HR #14 capsule 05/24/17 Unknown Rx [Macrobid CAP] ALBUTEROL Inhaler [ProAir HFA 2 puff IH ONCE #1 inha 01/04/18 Unknown Rx Inhaler] Amoxicillin/Potassium Clav 1 each PO BID #14 tablet 01/04/18 Unknown Rx [Augmentin 875-125 Tablet] Benzonatate [Tessalon Perles] 100 mg PO Q8HR #30 capsule 01/04/18 Unknown Rx Prednisone [predniSONE 5 mg (6-Day 5 mg PO .TAPER #1 tab.ds.pk 01/04/18 Unknown Rx Pack, 21 Tabs)] Azithromycin [Zithromax Z-RAMILA] 250 mg PO DAILY #6 tablet 01/11/18 Unknown Rx Benzonatate [Tessalon Perles] 100 mg PO Q8HR PRN #30 capsule 02/25/18 Unknown Rx Fluticasone [Flonase] 1 spray NS QDAY #1 bottle 02/25/18 Unknown Rx Loratadine [Claritin] 10 mg PO DAILY #30 tablet 02/25/18 Unknown Rx Aspirin [Aspirin BABY CHEW TAB] 81 mg PO QDAY #30 tab.chew 06/22/18 Unknown Rx ED Physical Exam - General Limitations: No Limitations General appearance: alert, in no apparent distress - Head Head exam: Present: atraumatic, normocephalic - Eye Eye exam: Present: normal appearance, EOMI. Absent: nystagmus - ENT ENT exam: Present: normal exam, normal orophraynx, mucous membranes moist, normal external ear exam - Neck Neck exam: Present: normal inspection, full ROM - Respiratory Respiratory exam: Present: normal lung sounds bilaterally. Absent: respiratory distress - Cardiovascular Cardiovascular Exam: Present: regular rate, normal rhythm, normal heart sounds. Absent: bradycardia, tachycardia, irregular rhythm, systolic murmur, diastolic murmur, rubs, gallop - GI/Abdominal GI/Abdominal exam: Present: soft, normal bowel sounds. Absent: distended, tenderness, guarding, rebound, rigid, pulsatile mass - Rectal Rectal exam: Present: deferred - Extremities Exam Extremities exam: Present: normal inspection, full ROM, normal capillary refill , other (2+ pulses noted in the bilateral upper, lower extremities. Compartments soft. No long bony tenderness. The pelvis is stable.). Absent: pedal edema, joint swelling, calf tenderness - Back Exam Back exam: Present: normal inspection, full ROM. Absent: tenderness, CVA tenderness (R), paraspinal tenderness, vertebral tenderness - Neurological Exam Neurological exam: Present: alert, oriented X3, CN II-XII intact, normal gait, other (Extraocular movements intact. Tongue midline. No facial droop. Facial sensation intact to light touch in the V1, V2, V3 distribution bilaterally. 5 and 5 strength in 4 extremities.. Sensation is intact to light touch in 4 extremities.). Absent: motor sensory deficit - Psychiatric Psychiatric exam: Present: normal affect, normal mood - Skin Skin exam: Present: warm, dry, intact, normal color. Absent: rash ED Course Vital Signs 06/22/18 06/22/18 06/22/18 08:40 17:07 17:16 Temperature 98.0 F Pulse Rate 71 47 L Respiratory 16 14 Rate Blood Pressure 163/85 187/85 Blood Pressure [Left] O2 Sat by Pulse 96 99 100 Oximetry 06/22/18 06/22/18 06/22/18 17:30 17:41 17:42 Temperature Pulse Rate 52 L 59 L Respiratory 19 18 18 Rate Blood Pressure 187/85 Blood Pressure 153/79 [Left] O2 Sat by Pulse 99 99 99 Oximetry - Reevaluation(s) Reevaluation #1: 06/22/18 17:54 Differential diagnosis, including but not limited to: Acute coronary syndrome, GERD, gastritis, pneumonia, deconditioning, hiatal hernia Assessment and plan: 72-year-old male with 2 months of intermittent epigastric burning. This burning does not occur during physical exertion. He independently describes shortness of breath when pushing heavy objects at work, only after exertion. Troponins are negative 3. Has no DVT, pulmonary embolus risk factors. EKG abnormal but unchanged from prior. Given 2 months of symptoms, hemodynamic stability while in the emergency room for a prolonged period of time of observation, it is my opinion that the patient does not require emergent hospitalization for cardiac risk stratification. His heart score of 4 is appreciated, however he got this for his age. I had extensive discussion with the patient regarding his chances of major adverse cardiac event. Through shared decision making, the patient and I have agreed that he will be discharged and he will closely follow up with outpatient cardiology to complete his cardiac risk stratification. The patient much prefers this to hospitalization. He indicates he is reliable to follow-up. MARTA score - Marta Score Age > 65: (1) Yes Aspirin use within the Past 7 Days: (0) No 3 or more CAD Risk Factors: (0) No 2 or more Angina events in past 24 hrs: (0) No Known CAD with more than 50% Stenosis: (0) No Elevated Cardiac Markers: (0) No ST Deviation Greater than 0.5mm: (0) No MARTA Score: 1 ED Medical Decision Making - Lab Data Result diagrams: 06/22/18 09:00 08/09/18 08:58 Vital Signs 06/22/18 06/22/18 06/22/18 08:40 17:07 17:16 Temperature 98.0 F Pulse Rate 71 47 L Respiratory 16 14 Rate Blood Pressure 163/85 187/85 Blood Pressure [Left] O2 Sat by Pulse 96 99 100 Oximetry 06/22/18 06/22/18 06/22/18 17:30 17:41 17:42 Temperature Pulse Rate 52 L 59 L Respiratory 19 18 18 Rate Blood Pressure 187/85 Blood Pressure 153/79 [Left] O2 Sat by Pulse 99 99 99 Oximetry Labs 06/22/18 06/22/18 06/22/18 08:58 09:00 12:30 WBC 5.4 RBC 4.18 Hgb 13.6 Hct 39.8 MCV 95 H MCH 33 H MCHC 34 RDW 14.4 Plt Count 206 Lymph % (Auto) 31.7 [place] % (Auto) 10.8 H Eos % (Auto) 1.3 Baso % (Auto) 0.2 Lymph # 1.7 [place] # 0.6 Eos # 0.1 Baso # 0.0 Seg Neutrophils % 56.0 Seg Neutrophils # 3.0 Sodium 140 Potassium 3.8 Chloride 102.8 Carbon Dioxide 24 Anion Gap 17 BUN 17 Creatinine 0.6 L Estimated GFR > 60 BUN/Creatinine Ratio 28 Glucose 97 Calcium 9.0 Troponin T < 0.010 < 0.010 06/22/18 14:38 WBC RBC Hgb Hct MCV MCH MCHC RDW Plt Count Lymph % (Auto) [place] % (Auto) Eos % (Auto) Baso % (Auto) Lymph # [place] # Eos # Baso # Seg Neutrophils % Seg Neutrophils # Sodium Potassium Chloride Carbon Dioxide Anion Gap BUN Creatinine Estimated GFR BUN/Creatinine Ratio Glucose Calcium Troponin T < 0.010 - EKG Data -: EKG Interpreted by [facility] - EKG Data When compared to previous EKG there are: previous EKG unavailable 06/22/18 17:54 Sinus, 63 bpm, normal axis, normal intervals, T waves noted in 1 and aVL, high left ventricular voltage, abnormal EKG, poor R-wave progression, T-wave inversion V2, not morphologically consistent with a STEMI EKG #2 was unchanged from prior. 06/22/18 17:56 - Radiology Data Radiology results: report reviewed, image reviewed X-ray of the chest is negative for acute disease Critical care attestation.: If time is entered above; I have spent that time in minutes in the direct care of this critically ill patient, excluding procedure time. ED Disposition Clinical Impression: Abnormal EKG, Epigastric pain Disposition: TO HOME OR SELFCARE Is pt being admited?: No Does the pt Need Aspirin: No Condition: Stable Instructions: Chest Pain (ED) Additional Instructions: Avoid consumption of Motrin, ibuprofen, Naprosyn, Aleve, heavy, spicy foods. Follow up with any of the listed cardiology groups within the next 3-5 days for outpatient cardiac stress test. Take the aspirin as directed. Return to the ER right away with new pain, worsened pain, migration of pain, fevers, chills, lethargy, irritability, projectile vomiting, change in mental status, confusion , inability to tolerate liquid feeds. Referrals: PRIMARY CARE,MD [Primary Care Provider] - 3-5 Days [facility] [Provider Group] - 3-5 Days [facility] [Provider Group] - 3-5 Days
[2018-06-22 17:41] VITALS: BP 153/79
== END 2018-06-22 18:07 | disposition home or self-care (01) ==
LOC: ED 08:37
DX: R10.13 Epigastric pain (principal); R06.02 Shortness of breath; I10 Essential (primary) hypertension
CPT/HCPCS: 36415; 71046; 80048; 84484; 85025; 93005; 93010; 99284

== ENCOUNTER 2018-11-26 06:41 | Emergency (ER) | payer MEDICARE, OTHER ==
[2018-11-26 06:49] VITALS: BP 143/85
[2018-11-26] MEDS ORDERED: TESSALON PERLES PO ONE (07:18)
--- NOTE | 2018-11-26 07:50 | Emergency Department Report ---
- General Chief Complaint: Upper Respiratory Infection Stated Complaint: COLD Time Seen by Provider: 11/26/18 07:09 Source: patient Mode of arrival: Ambulatory Limitations: No Limitations - History of Present Illness Initial Comments: This is a 73-year-old male nontoxic, well nourished in appearance, no acute signs of distress presents to the ED with c/o of productive cough, rhinorrhea, nasal congestion x1 week. Patient describes productive cough as yellow mucus production. Patient denies any sick contact. Patient denies any recent travels, long car, recent hospital stays. Patient denies any calf pain or calf tenderness. Patient denies any chest pain, short of breath, fever, chills, nausea, vomiting, hemoptysis, numbness, tingling, headache or stiff neck. Patient denies any allergies with PMH of HTN. MD Complaint: cough, rhinorrhea, nasal congestion -: week(s) (1) Severity: mild Severity scale (0 -10): 0 Consistency: constant Improves With: nothing Worsens With: nothing Associated Symptoms: rhinorrhea, nasal congestion, cough. denies: fever, chills, myalgias, diaphoresis, headache, sore throat, stiff neck, chest pain, shortness of breath, nausea, vomiting, diarrhea, dysuria, rash, confusion, right sweats, weight loss, epistaxis, hoarseness, ear pain Treatments Prior to Arrival: none - Related Data Home Medications Medication Instructions Recorded Confirmed Last Taken Ascorbic Acid [Vitamin C] 250 mg PO QDAY 06/30/16 05/23/17 06/30/16 Previous Rx's Medication Instructions Recorded Last Taken Type Nitrofurantoin [place]/M-Cryst 100 mg PO Q12HR #14 capsule 05/24/17 Unknown Rx [Macrobid CAP] ALBUTEROL Inhaler (OR & NICU) 2 puff IH ONCE #1 inha 01/04/18 Unknown Rx [ProAir HFA Inhaler] Amoxicillin/Potassium Clav 1 each PO BID #14 tablet 01/04/18 Unknown Rx [Augmentin 875-125 Tablet] Benzonatate [Tessalon Perles] 100 mg PO Q8HR #30 capsule 01/04/18 Unknown Rx Prednisone [predniSONE 5 mg (6-Day 5 mg PO .TAPER #1 tab.ds.pk 01/04/18 Unknown Rx Pack, 21 Tabs)] Azithromycin [Zithromax Z-RAMILA] 250 mg PO DAILY #6 tablet 01/11/18 Unknown Rx Benzonatate [Tessalon Perles] 100 mg PO Q8HR PRN #30 capsule 02/25/18 Unknown Rx Fluticasone [Flonase] 1 spray NS QDAY #1 bottle 02/25/18 Unknown Rx Loratadine [Claritin] 10 mg PO DAILY #30 tablet 02/25/18 Unknown Rx Aspirin [Aspirin BABY CHEW TAB] 81 mg PO QDAY #30 tab.chew 06/22/18 Unknown Rx Ondansetron [Zofran Odt] 4 mg PO Q8HR PRN #14 tab.rapdis 09/16/18 Unknown Rx traMADol [Ultram 50 MG tab] 50 mg PO Q4HR PRN #14 tablet 09/16/18 Unknown Rx Ibuprofen [Motrin] 600 mg PO Q8H PRN #20 tablet 10/19/18 Unknown Rx traMADol [Ultram] 50 mg PO Q6HR PRN #10 tablet 10/19/18 Unknown Rx Azithromycin [Zithromax Z-RAMILA] 250 mg PO DAILY #6 tablet 11/26/18 Unknown Rx Benzonatate [Tessalon Perle] 100 mg PO Q8H PRN #20 capsule 11/26/18 Unknown Rx Ibuprofen [Motrin] 600 mg PO Q8H PRN #20 tablet 11/26/18 Unknown Rx Prednisone [predniSONE 10 mg 10 mg PO .TAPER #1 tab.ds.pk 11/26/18 Unknown Rx (6-Day Pack, 21 Tabs)] Allergies Allergy/AdvReac Type Severity Reaction Status Date / Time No Known Allergies Allergy Verified 06/30/16 08:17 ED Review of Systems ROS: Stated complaint: COLD Other details as noted in HPI Constitutional: denies: chills, fever Eyes: denies: eye pain, eye discharge, vision change ENT: congestion. denies: ear pain, throat pain Respiratory: cough. denies: shortness of breath, wheezing Cardiovascular: denies: chest pain, palpitations Endocrine: no symptoms reported Gastrointestinal: denies: abdominal pain, nausea, diarrhea Genitourinary: denies: urgency, dysuria Musculoskeletal: denies: back pain, joint swelling, arthralgia Skin: denies: rash, lesions Neurological: denies: headache, weakness, paresthesias Psychiatric: denies: anxiety, depression Hematological/Lymphatic: denies: easy bleeding, easy bruising ED Past Medical Hx - Past Medical History Hx Hypertension: Yes (controlled) Additional medical history: prostate problems, self cath @ times - Surgical History Additional Surgical History: left knee replacement - Social History Smoking Status: Never Smoker Substance Use Type: None - Medications Home Medications: Home Medications Medication Instructions Recorded Confirmed Last Taken Type Ascorbic Acid [Vitamin C] 250 mg PO QDAY 06/30/16 05/23/17 06/30/16 History Nitrofurantoin [place]/M-Cryst 100 mg PO Q12HR #14 capsule 05/24/17 Unknown Rx [Macrobid CAP] ALBUTEROL Inhaler (OR & NICU) 2 puff IH ONCE #1 inha 01/04/18 Unknown Rx [ProAir HFA Inhaler] Amoxicillin/Potassium Clav 1 each PO BID #14 tablet 01/04/18 Unknown Rx [Augmentin 875-125 Tablet] Benzonatate [Tessalon Perles] 100 mg PO Q8HR #30 capsule 01/04/18 Unknown Rx Prednisone [predniSONE 5 mg (6-Day 5 mg PO .TAPER #1 tab.ds.pk 01/04/18 Unknown Rx Pack, 21 Tabs)] Azithromycin [Zithromax Z-RAMILA] 250 mg PO DAILY #6 tablet 01/11/18 Unknown Rx Benzonatate [Tessalon Perles] 100 mg PO Q8HR PRN #30 capsule 02/25/18 Unknown Rx Fluticasone [Flonase] 1 spray NS QDAY #1 bottle 02/25/18 Unknown Rx Loratadine [Claritin] 10 mg PO DAILY #30 tablet 02/25/18 Unknown Rx Aspirin [Aspirin BABY CHEW TAB] 81 mg PO QDAY #30 tab.chew 06/22/18 Unknown Rx Ondansetron [Zofran Odt] 4 mg PO Q8HR PRN #14 tab.rapdis 09/16/18 Unknown Rx traMADol [Ultram 50 MG tab] 50 mg PO Q4HR PRN #14 tablet 09/16/18 Unknown Rx Ibuprofen [Motrin] 600 mg PO Q8H PRN #20 tablet 10/19/18 Unknown Rx traMADol [Ultram] 50 mg PO Q6HR PRN #10 tablet 10/19/18 Unknown Rx Azithromycin [Zithromax Z-RAMILA] 250 mg PO DAILY #6 tablet 11/26/18 Unknown Rx Benzonatate [Tessalon Perle] 100 mg PO Q8H PRN #20 capsule 11/26/18 Unknown Rx Ibuprofen [Motrin] 600 mg PO Q8H PRN #20 tablet 11/26/18 Unknown Rx Prednisone [predniSONE 10 mg 10 mg PO .TAPER #1 tab.ds.pk 11/26/18 Unknown Rx (6-Day Pack, 21 Tabs)] ED Physical Exam - General Limitations: No Limitations General appearance: alert, in no apparent distress - Head Head exam: Present: atraumatic, normocephalic - Eye Eye exam: Present: normal appearance - Neck Neck exam: Present: normal inspection, full ROM - Respiratory Respiratory exam: Present: normal lung sounds bilaterally. Absent: respiratory distress, wheezes, rales, rhonchi, stridor, chest wall tenderness, accessory muscle use, decreased breath sounds, prolonged expiratory - Cardiovascular Cardiovascular Exam: Present: regular rate, normal rhythm, normal heart sounds. Absent: bradycardia, tachycardia, irregular rhythm, systolic murmur, diastolic murmur, rubs, gallop - Extremities Exam Extremities exam: Present: normal inspection, full ROM, normal capillary refill - Back Exam Back exam: Present: normal inspection, full ROM - Neurological Exam Neurological exam: Present: alert, oriented X3 - Psychiatric Psychiatric exam: Present: normal affect, normal mood - Skin Skin exam: Present: warm, dry, intact, normal color. Absent: rash ED Course Vital Signs 11/26/18 06:45 Temperature 98.7 F Pulse Rate 79 Respiratory 18 Rate Blood Pressure 143/85 O2 Sat by Pulse 97 Oximetry - Reevaluation(s) Reevaluation #1: 11/26/18 07:59 Patient is speaking in full sentences with no signs of distress noted. ED Medical Decision Making - Medical Decision Making This is a 73-year-old male that presents with bronchitis. Patient is stable and was examined by me. Chest x-ray has been obtained and dictated by radiologist with normal exam. Patient is notified of x-ray results with no questions noted. Due to patient having symptoms of upper respiratory infection and worsening I will treat patient empirically with zpak. Patient was instructed to increase hydration, rest and take Motrin for fever episodes. Patient received tesslone perrls in the ED. Vitals stable. Patient is nonfebrile and normal heart rate. Patient was instructed Follow-up with a primary care doctor in 3-5 days or if symptoms worsen and continue return to emergency room as soon as possible. At time time of discharge, the patient does not seem toxic or ill in appearance. No acute signs of distress noted. Patient agrees to discharge treatment plan of care. No further questions noted by the patient. Critical care attestation.: If time is entered above; I have spent that time in minutes in the direct care of this critically ill patient, excluding procedure time. ED Disposition Clinical Impression: Bronchitis Disposition: DC-01 TO HOME OR SELFCARE Is pt being admited?: No Does the pt Need Aspirin: No Condition: Stable Instructions: Acute Bronchitis (ED) Additional Instructions: Follow-up with a primary care doctor in 3-5 days or if symptoms worsen and continue return to emergency room as soon as possible. Prescriptions: Azithromycin [Zithromax Z-RAMILA] 250 mg PO DAILY #6 tablet Benzonatate [Tessalon Perle] 100 mg PO Q8H PRN #20 capsule PRN Reason: Cough Ibuprofen [Motrin] 600 mg PO Q8H PRN #20 tablet PRN Reason: Pain Prednisone [predniSONE 10 mg (6-Day Pack, 21 Tabs)] 10 mg PO .TAPER #1 tab.ds.pk Referrals: PRIMARY CAREMD [Referring] - 3-5 Days TIANNA HOGAN MD [Staff Physician] - 3-5 Days [facility] [Outside] - 3-5 Days [facility] [Outside] - 3-5 Days Forms: Work/School Release Form(ED)
--- NOTE | 2018-11-26 07:54 | XRay Report ---
FINAL REPORT PROCEDURE: XR CHEST ROUTINE 2V TECHNIQUE: PA and lateral chest radiographs were obtained. CPT 18018 HISTORY: cough and congestion COMPARISON: No prior studies are available for comparison. FINDINGS: Heart: Normal. Mediastinum/Vessels: Normal. Lungs/Pleural space: Normal. Bony thorax: No acute osseous abnormality. Other: IMPRESSION: Normal examination.
== END 2018-11-26 08:14 | disposition home or self-care (01) ==
LOC: ED 06:41
DX: J40 Bronchitis, not specified as acute or chronic (principal); I10 Essential (primary) hypertension; Z96.652 Presence of left artificial knee joint; Z79.899 Other long term (current) drug therapy
CPT/HCPCS: 71046; 99283

== ENCOUNTER 2019-01-01 18:52 | Emergency (ER) | payer MEDICARE, OTHER ==
--- NOTE | 2019-01-01 19:17 | Emergency Department Report ---
Blank Doc - Documentation Documentation: This is a 73-year-old male that presents with right neck skin lesion x1 year. Has history of skin cancer. Denies any other complaints or symptoms. This initial assessment diagnostic orders/clinical plan/treatment(s) is/are subject to change based on patient's health status, clinical progression and re- assessment by fellow clinical providers in the ED. Further treatment and workup at subsequent clinical providers discretion. Patient/guardians urged not to elope from ED s their condition may be serious if not clinically assessed and managed. Initial orders include: 1-Patient sent to [facility] for further evaluation and treatment
--- NOTE | 2019-01-01 22:00 | Emergency Department Report ---
ED General Adult HPI - General Chief complaint: Skin/Abscess/Foreign Body Stated complaint: SORE ON NECK Time Seen by Provider: 01/01/19 19:16 Source: patient, RN notes reviewed, old records reviewed Mode of arrival: Ambulatory Limitations: No Limitations - History of Present Illness Initial comments: This is a 73-year-old gentleman who presents to the ER with a complaint of right lateral/posterior skin lesion, present 1 year, painless, decreasing in size. He wants to know if it is skin cancer. He does not have exacerbating or relieving factors. He reports no prolonged sun exposure. Denies physical pain. Denies other complaints. -: year(s) (1) Location: neck Radiation: non-radiation Severity scale (0 -10): 0 Consistency: constant Improves with: none Worsens with: none Associated Symptoms: denies other symptoms, rash (nontraumatic skin lesion) - Related Data Home Medications Medication Instructions Recorded Confirmed Last Taken Ascorbic Acid [Vitamin C] 250 mg PO QDAY 06/30/16 05/23/17 06/30/16 Previous Rx's Medication Instructions Recorded Last Taken Type Nitrofurantoin [place]/M-Cryst 100 mg PO Q12HR #14 capsule 05/24/17 Unknown Rx [Macrobid CAP] ALBUTEROL Inhaler (OR & NICU) 2 puff IH ONCE #1 inha 01/04/18 Unknown Rx [ProAir HFA Inhaler] Amoxicillin/Potassium Clav 1 each PO BID #14 tablet 01/04/18 Unknown Rx [Augmentin 875-125 Tablet] Benzonatate [Tessalon Perles] 100 mg PO Q8HR #30 capsule 01/04/18 Unknown Rx Prednisone [predniSONE 5 mg (6-Day 5 mg PO .TAPER #1 tab.ds.pk 01/04/18 Unknown Rx Pack, 21 Tabs)] Azithromycin [Zithromax Z-RAMILA] 250 mg PO DAILY #6 tablet 01/11/18 Unknown Rx Benzonatate [Tessalon Perles] 100 mg PO Q8HR PRN #30 capsule 02/25/18 Unknown Rx Fluticasone [Flonase] 1 spray NS QDAY #1 bottle 02/25/18 Unknown Rx Loratadine [Claritin] 10 mg PO DAILY #30 tablet 02/25/18 Unknown Rx Aspirin [Aspirin BABY CHEW TAB] 81 mg PO QDAY #30 tab.chew 06/22/18 Unknown Rx Ondansetron [Zofran Odt] 4 mg PO Q8HR PRN #14 tab.rapdis 09/16/18 Unknown Rx traMADol [Ultram 50 MG tab] 50 mg PO Q4HR PRN #14 tablet 09/16/18 Unknown Rx Ibuprofen [Motrin] 600 mg PO Q8H PRN #20 tablet 10/19/18 Unknown Rx traMADol [Ultram] 50 mg PO Q6HR PRN #10 tablet 10/19/18 Unknown Rx Azithromycin [Zithromax Z-RAMILA] 250 mg PO DAILY #6 tablet 11/26/18 Unknown Rx Benzonatate [Tessalon Perle] 100 mg PO Q8H PRN #20 capsule 11/26/18 Unknown Rx Ibuprofen [Motrin] 600 mg PO Q8H PRN #20 tablet 11/26/18 Unknown Rx Prednisone [predniSONE 10 mg 10 mg PO .TAPER #1 tab.ds.pk 11/26/18 Unknown Rx (6-Day Pack, 21 Tabs)] Allergies Allergy/AdvReac Type Severity Reaction Status Date / Time No Known Allergies Allergy Verified 06/30/16 08:17 ED Review of Systems ROS: Stated complaint: SORE ON NECK Other details as noted in HPI Constitutional: denies: fever Eyes: denies: eye discharge, vision change ENT: denies: epistaxis Respiratory: denies: cough Cardiovascular: denies: chest pain Gastrointestinal: denies: abdominal pain Musculoskeletal: denies: back pain Skin: lesions Neurological: denies: headache, weakness ED Past Medical Hx - Past Medical History Hx Hypertension: Yes (controlled) Additional medical history: prostate problems, self cath @ times - Surgical History Additional Surgical History: left knee fx - Social History Smoking Status: Never Smoker Substance Use Type: None - Medications Home Medications: Home Medications Medication Instructions Recorded Confirmed Last Taken Type Ascorbic Acid [Vitamin C] 250 mg PO QDAY 06/30/16 05/23/17 06/30/16 History Nitrofurantoin [place]/M-Cryst 100 mg PO Q12HR #14 capsule 05/24/17 Unknown Rx [Macrobid CAP] ALBUTEROL Inhaler (OR & NICU) 2 puff IH ONCE #1 inha 01/04/18 Unknown Rx [ProAir HFA Inhaler] Amoxicillin/Potassium Clav 1 each PO BID #14 tablet 01/04/18 Unknown Rx [Augmentin 875-125 Tablet] Benzonatate [Tessalon Perles] 100 mg PO Q8HR #30 capsule 01/04/18 Unknown Rx Prednisone [predniSONE 5 mg (6-Day 5 mg PO .TAPER #1 tab.ds.pk 01/04/18 Unknown Rx Pack, 21 Tabs)] Azithromycin [Zithromax Z-RAMILA] 250 mg PO DAILY #6 tablet 01/11/18 Unknown Rx Benzonatate [Tessalon Perles] 100 mg PO Q8HR PRN #30 capsule 02/25/18 Unknown Rx Fluticasone [Flonase] 1 spray NS QDAY #1 bottle 02/25/18 Unknown Rx Loratadine [Claritin] 10 mg PO DAILY #30 tablet 02/25/18 Unknown Rx Aspirin [Aspirin BABY CHEW TAB] 81 mg PO QDAY #30 tab.chew 06/22/18 Unknown Rx Ondansetron [Zofran Odt] 4 mg PO Q8HR PRN #14 tab.rapdis 09/16/18 Unknown Rx traMADol [Ultram 50 MG tab] 50 mg PO Q4HR PRN #14 tablet 09/16/18 Unknown Rx Ibuprofen [Motrin] 600 mg PO Q8H PRN #20 tablet 10/19/18 Unknown Rx traMADol [Ultram] 50 mg PO Q6HR PRN #10 tablet 10/19/18 Unknown Rx Azithromycin [Zithromax Z-RAMILA] 250 mg PO DAILY #6 tablet 11/26/18 Unknown Rx Benzonatate [Tessalon Perle] 100 mg PO Q8H PRN #20 capsule 11/26/18 Unknown Rx Ibuprofen [Motrin] 600 mg PO Q8H PRN #20 tablet 11/26/18 Unknown Rx Prednisone [predniSONE 10 mg 10 mg PO .TAPER #1 tab.ds.pk 11/26/18 Unknown Rx (6-Day Pack, 21 Tabs)] ED Physical Exam - General Limitations: No Limitations General appearance: alert, in no apparent distress - Head Head exam: Present: atraumatic, normocephalic - Eye Eye exam: Present: normal appearance, EOMI. Absent: nystagmus - ENT ENT exam: Present: normal exam, normal orophraynx, mucous membranes moist, normal external ear exam - Neck Neck exam: Present: normal inspection, full ROM, other (on the right lateral posterior aspect of the neck, there is a hyperpigmented and elevated nontender lesion, with no redness, pus or streaking. It is approximately 1 mm in diameter). Absent: tenderness, meningismus - Respiratory Respiratory exam: Present: normal lung sounds bilaterally. Absent: respiratory distress, wheezes, rales, stridor, chest wall tenderness - Cardiovascular Cardiovascular Exam: Present: regular rate, normal rhythm, normal heart sounds, systolic murmur (2/6 systolic murmur, heard best at the right and left second intercostal spaces.). Absent: diastolic murmur, rubs, gallop - GI/Abdominal GI/Abdominal exam: Present: soft. Absent: distended, tenderness, guarding, rigi d - Rectal Rectal exam: Present: deferred - Extremities Exam Extremities exam: Present: normal inspection, full ROM, other (moving 4 extremities. 2+ pulses in the bilateral upper extremities). Absent: pedal edema - Back Exam Back exam: Present: normal inspection, full ROM. Absent: tenderness - Neurological Exam Neurological exam: Present: alert, oriented X3, CN II-XII intact, normal gait, other (Extraocular movements intact. Tongue midline. No facial droop. Facial sensation intact to light touch in the V1, V2, V3 distribution bilaterally. 5 and 5 strength in 4 extremities.. Sensation is intact to light touch in 4 extremities.). Absent: motor sensory deficit - Psychiatric Psychiatric exam: Present: normal affect, normal mood - Skin Skin exam: Present: warm, dry, intact, normal color. Absent: cyanosis, diaphoretic, erythema, urticaria, vesicles, petechiae, pallor, abrasion, ecchymosis ED Course Vital Signs 01/01/19 19:16 Temperature 97.7 F Pulse Rate 71 Respiratory 18 Rate Blood Pressure 144/80 O2 Sat by Pulse 100 Oximetry ED Medical Decision Making - Lab Data Vital Signs 01/01/19 19:16 Temperature 97.7 F Pulse Rate 71 Respiratory 18 Rate Blood Pressure 144/80 O2 Sat by Pulse 100 Oximetry - Medical Decision Making Differential diagnosis, including but not limited to: Hyperpigmented skin lesion, medical clearance, general medical evaluation Assessment and plan: 73-year-old gentleman with skin lesion times one year. The lesion does not appear to be superinfected. It is unlikely to be malignant. Counseled patient to follow-up with palpation hand assembler for biopsy for definitive diagnosis. Critical care attestation.: If time is entered above; I have spent that time in minutes in the direct care of this critically ill patient, excluding procedure time. ED Disposition Clinical Impression: Skin lesion Disposition: DC-01 TO HOME OR SELFCARE Is pt being admited?: No Does the pt Need Aspirin: No Condition: Stable Additional Instructions: Continue outpatient medications. Follow-up with the denial resolution specialist in 4-6 weeks for biopsy and definitive evaluation. Without a biopsy, cancer, tumor, malignancy may not be excluded. Return to the emergency room right away with new, worse or different symptoms. Referrals: AKIN JIMENEZ MD [Staff Physician] - as needed
== END 2019-01-01 22:15 | disposition home or self-care (01) ==
LOC: ED 18:52
CPT/HCPCS: 99282

== ENCOUNTER 2019-01-17 12:57 | Emergency (ER) | payer MEDICARE, OTHER ==
--- NOTE | 2019-01-17 13:10 | Emergency Department Report ---
Blank Doc - Documentation Documentation: This is a 73-year-old male that presents with weakness and body aches. Stated has some urinary symptoms such as frequency. This initial assessment/diagnostic orders/clinical plan/treatment(s) is/are subject to change based on patient's health status, clinical progression and re- assessment by fellow clinical providers in the ED. Further treatment and workup at subsequent clinical providers discretion. Patient/guardians urged not to elope from the ED as their condition may be serious if not clinically assessed and managed. Initial orders include: 1- Patient sent to [facility] for further evaluation and treatment 2- Labs 3- UA
[2019-01-17 13:12] VITALS: BP 125/64
[2019-01-17 13:57] LABS: Bacteria,Urine 1+ /HPF (Negative); Bilirubin,Urine NEG (Negative); Blood,Urine NEG (Negative); Color,Urine Yellow (Yellow); Mucus,Urine FEW /HPF; Protein,Urine <15 mg/dL mg/dL (Negative)
[2019-01-17 14:02] LABS: Basophils # (Auto) 0.1 K/mm3 (0.0-0.1); Basophils % (Auto) 0.7 % (0.0-1.8); Eosinophils % (Auto) 0.1 % (0.0-4.3); Hematocrit 37.3 % (35.5-45.6); Lymphocytes # (Auto) 1.5 K/mm3 (1.2-5.4); Lymphocytes % (Auto) 8.7 % (13.4-35.0); Mean Corpuscular HGB Conc 35 % (32-34); Mean Corpuscular Volume 93 fl (84-94); Monocytes # (Auto) 1.5 K/mm3 (0.0-0.8); Monocytes % (Auto) 8.7 % (0.0-7.3); Platelet Count 208 K/mm3 (140-440); Red Blood Count 3.99 M/mm3 (3.65-5.03); Red Cell Distribution Width 14.7 % (13.2-15.2)
[2019-01-17] MEDS ORDERED: KEFLEX PO ONE (14:11)
--- NOTE | 2019-01-17 14:17 | Emergency Department Report ---
ED Fever HPI - General Chief Complaint: Weakness Stated Complaint: WEAKNESS Time Seen by Provider: 01/17/19 13:08 - History of Present Illness Initial Comments: Mr. Tay is a very pleasant healthy 73 yo gentleman who presents with weakness body aches, cough, chills and frequent urination. Mild symptoms. Came to ED today for excuse from his job. Has had mild urinary obstruction due to BPH, previously requiring him to self-cath Timing/Duration: other (since Tuesday) Fever Severity/Quality: subjective Associated Symptoms: cough, muscle aches, other (frequent urination) ED Review of Systems ROS: Stated complaint: WEAKNESS Other details as noted in HPI Comment: All other systems reviewed and negative Constitutional: chills, malaise Genitourinary: frequency ED Past Medical Hx - Past Medical History Previous Medical History?: Yes Hx Hypertension: Yes (controlled) Additional medical history: prostate problems, self cath @ times - Surgical History Past Surgical History?: Yes Additional Surgical History: left knee fx - Social History Smoking Status: Never Smoker Substance Use Type: None - Medications Home Medications: Home Medications Medication Instructions Recorded Confirmed Last Taken Type Ascorbic Acid [Vitamin C] 250 mg PO QDAY 06/30/16 05/23/17 06/30/16 History Nitrofurantoin [place]/M-Cryst 100 mg PO Q12HR #14 capsule 05/24/17 Unknown Rx [Macrobid CAP] ALBUTEROL Inhaler (OR & NICU) 2 puff IH ONCE #1 inha 01/04/18 Unknown Rx [ProAir HFA Inhaler] Amoxicillin/Potassium Clav 1 each PO BID #14 tablet 01/04/18 Unknown Rx [Augmentin 875-125 Tablet] Benzonatate [Tessalon Perles] 100 mg PO Q8HR #30 capsule 01/04/18 Unknown Rx Prednisone [predniSONE 5 mg (6-Day 5 mg PO .TAPER #1 tab.ds.pk 01/04/18 Unknown Rx Pack, 21 Tabs)] Azithromycin [Zithromax Z-RAMILA] 250 mg PO DAILY #6 tablet 01/11/18 Unknown Rx Benzonatate [Tessalon Perles] 100 mg PO Q8HR PRN #30 capsule 02/25/18 Unknown Rx Fluticasone [Flonase] 1 spray NS QDAY #1 bottle 02/25/18 Unknown Rx Loratadine [Claritin] 10 mg PO DAILY #30 tablet 02/25/18 Unknown Rx Aspirin [Aspirin BABY CHEW TAB] 81 mg PO QDAY #30 tab.chew 06/22/18 Unknown Rx Ondansetron [Zofran Odt] 4 mg PO Q8HR PRN #14 tab.rapdis 09/16/18 Unknown Rx traMADol [Ultram 50 MG tab] 50 mg PO Q4HR PRN #14 tablet 09/16/18 Unknown Rx Ibuprofen [Motrin] 600 mg PO Q8H PRN #20 tablet 10/19/18 Unknown Rx traMADol [Ultram] 50 mg PO Q6HR PRN #10 tablet 10/19/18 Unknown Rx Azithromycin [Zithromax Z-RAMILA] 250 mg PO DAILY #6 tablet 11/26/18 Unknown Rx Benzonatate [Tessalon Perle] 100 mg PO Q8H PRN #20 capsule 11/26/18 Unknown Rx Ibuprofen [Motrin] 600 mg PO Q8H PRN #20 tablet 11/26/18 Unknown Rx Prednisone [predniSONE 10 mg 10 mg PO .TAPER #1 tab.ds.pk 11/26/18 Unknown Rx (6-Day Pack, 21 Tabs)] cephALEXin [Keflex] 500 mg PO TID 10 Days #30 capsule 01/17/19 Unknown Rx ED Physical Exam - General Limitations: No Limitations General appearance: alert, in no apparent distress - Head Head exam: Present: atraumatic, normocephalic - Eye Eye exam: Present: normal appearance Pupils: Present: other (appears quite well, younger than stated age) - ENT ENT exam: Present: mucous membranes moist - Neck Neck exam: Present: normal inspection, full ROM - Respiratory Respiratory exam: Present: normal lung sounds bilaterally. Absent: respiratory distress, wheezes, rales, rhonchi - Cardiovascular Cardiovascular Exam: Present: regular rate, normal rhythm, normal heart sounds. Absent: systolic murmur, diastolic murmur, rubs, gallop - GI/Abdominal GI/Abdominal exam: Present: soft, normal bowel sounds. Absent: distended, tenderness, guarding, rebound - Rectal Rectal exam: Present: deferred - Extremities Exam Extremities exam: Present: normal inspection - Back Exam Back exam: Present: normal inspection - Neurological Exam Neurological exam: Present: alert, oriented X3 - Psychiatric Psychiatric exam: Present: normal affect, normal mood - Skin Skin exam: Present: warm, dry, intact, normal color. Absent: rash ED Course Vital Signs 01/17/19 13:09 Temperature 98.7 F Pulse Rate 98 H Respiratory 18 Rate Blood Pressure 125/64 O2 Sat by Pulse 96 Oximetry ED Medical Decision Making - Lab Data Result diagrams: 01/17/19 13:55 Lab Results 01/17/19 01/17/19 Range/Units 13:42 13:55 WBC 16.9 H (4.5-11.0) K/mm3 RBC 3.99 (3.65-5.03) M/mm3 Hgb 13.0 (11.8-15.2) gm/dl Hct 37.3 (35.5-45.6) % MCV 93 (84-94) fl MCH 33 H (28-32) pg MCHC 35 H (32-34) % RDW 14.7 (13.2-15.2) % Plt Count 208 (140-440) K/mm3 Lymph % (Auto) 8.7 L (13.4-35.0) % [place] % (Auto) 8.7 H (0.0-7.3) % Eos % (Auto) 0.1 (0.0-4.3) % Baso % (Auto) 0.7 (0.0-1.8) % Lymph # 1.5 (1.2-5.4) K/mm3 [place] # 1.5 H (0.0-0.8) K/mm3 Eos # 0.0 (0.0-0.4) K/mm3 Baso # 0.1 (0.0-0.1) K/mm3 Seg Neutrophils % 81.8 H (40.0-70.0) % Seg Neutrophils # 13.8 H (1.8-7.7) K/mm3 Urine Color Yellow (Yellow) Urine Turbidity Clear (Clear) Urine pH 7.0 (5.0-7.0) Ur Specific [place] 1.016 (1.003-1.030) Urine Protein <15 mg/dl (Negative) mg/dL Urine Glucose (UA) Neg (Negative) mg/dL Urine Ketones Neg (Negative) mg/dL Urine Blood Neg (Negative) Urine Nitrite Neg (Negative) Urine Bilirubin Neg (Negative) Urine Urobilinogen 2.0 (<2.0) mg/dL Ur Leukocyte Esterase Mod (Negative) Urine WBC (Auto) 65.0 H (0.0-6.0) /HPF Urine RBC (Auto) 7.0 (0.0-6.0) /HPF U Epithel Cells (Auto) < 1.0 (0-13.0) /HPF Urine Bacteria (Auto) 1+ (Negative) /HPF Urine Mucus Few /HPF Urine Yeast (Budding) 2+ /HPF - Medical Decision Making UTI, rx: keflex Critical care attestation.: If time is entered above; I have spent that time in minutes in the direct care of this critically ill patient, excluding procedure time. ED Disposition Clinical Impression: UTI (urinary tract infection) Disposition: TO HOME OR SELFCARE Is pt being admited?: No Does the pt Need Aspirin: No Condition: Stable Instructions: Urinary Tract Infection in Men (ED) Prescriptions: cephALEXin [Keflex] 500 mg PO TID 10 Days #30 capsule Referrals: [facility] [Primary Care Provider] - 3-5 Days
[2019-01-17 14:19] LABS: BUN/Creatinine Ratio 16; Blood Urea Nitrogen 14 mg/dL (9-20); Calcium 9.2 mg/dL (8.4-10.2); Hemolysis Index 14
== END 2019-01-17 14:50 | disposition home or self-care (01) ==
LOC: ED 12:57
DX: N39.0 Urinary tract infection, site not specified (principal); I10 Essential (primary) hypertension
CPT/HCPCS: 36415; 80048; 81001; 85025

== ENCOUNTER 2019-04-20 10:03 | Emergency (ER) | payer MEDICARE, OTHER ==
[2019-04-20 10:14] VITALS: BP 124/53
[2019-04-20] MEDS ORDERED: TYLENOL PO ONE (10:51)
--- NOTE | 2019-04-20 10:54 | Emergency Department Report ---
Upper Extremity - HPI Chief Complaint: Extremity Injury, Upper Stated Complaint: (R) THUMB PAIN/SWELLING Time Seen by Provider: 04/20/19 10:35 Upper Extremity: Right Thumb Occurred When: 3 Days Mechanism: Unsure Severity: mild Symptoms: No Pain with Movement, No Deformity, No Limited Range of Movement, No Numbness, No Weakness, No Swelling, No Bruising/Ecchymosis, No Laceration or Abrasion Other History: 73-year-old male presents to the emergency room for right thumb clicking. Patient states that it started about 2-3 days ago. 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 Patient has not taken any pain medicine. Denies any swelling reports no pain. Patient denies any limitations. ED Review of Systems ROS: Stated complaint: (R) THUMB PAIN/SWELLING Other details as noted in HPI Comment: All other systems reviewed and negative ED Past Medical Hx - Past Medical History Previous Medical History?: Yes Hx Hypertension: Yes (controlled) Additional medical history: prostate problems, self cath @ times - Surgical History Past Surgical History?: Yes Additional Surgical History: left knee fx - Social History Smoking Status: Never Smoker Substance Use Type: None - Medications Home Medications: Home Medications Medication Instructions Recorded Confirmed Last Taken Type Ascorbic Acid [Vitamin C] 250 mg PO QDAY 06/30/16 05/23/17 06/30/16 History Nitrofurantoin [place]/M-Cryst 100 mg PO Q12HR #14 capsule 05/24/17 Unknown Rx [Macrobid CAP] ALBUTEROL Inhaler (OR & NICU) 2 puff IH ONCE #1 inha 01/04/18 Unknown Rx [ProAir HFA Inhaler] Amoxicillin/Potassium Clav 1 each PO BID #14 tablet 01/04/18 Unknown Rx [Augmentin 875-125 Tablet] Benzonatate [Tessalon Perles] 100 mg PO Q8HR #30 capsule 01/04/18 Unknown Rx Prednisone [predniSONE 5 mg (6-Day 5 mg PO .TAPER #1 tab.ds.pk 01/04/18 Unknown Rx Pack, 21 Tabs)] Azithromycin [Zithromax Z-RAMILA] 250 mg PO DAILY #6 tablet 01/11/18 Unknown Rx Benzonatate [Tessalon Perles] 100 mg PO Q8HR PRN #30 capsule 02/25/18 Unknown Rx Fluticasone [Flonase] 1 spray NS QDAY #1 bottle 02/25/18 Unknown Rx Loratadine [Claritin] 10 mg PO DAILY #30 tablet 02/25/18 Unknown Rx Aspirin [Aspirin BABY CHEW TAB] 81 mg PO QDAY #30 tab.chew 06/22/18 Unknown Rx Ondansetron [Zofran Odt] 4 mg PO Q8HR PRN #14 tab.rapdis 09/16/18 Unknown Rx traMADol [Ultram 50 MG tab] 50 mg PO Q4HR PRN #14 tablet 09/16/18 Unknown Rx Ibuprofen [Motrin] 600 mg PO Q8H PRN #20 tablet 10/19/18 Unknown Rx traMADol [Ultram] 50 mg PO Q6HR PRN #10 tablet 10/19/18 Unknown Rx Azithromycin [Zithromax Z-RAMILA] 250 mg PO DAILY #6 tablet 11/26/18 Unknown Rx Benzonatate [Tessalon Perle] 100 mg PO Q8H PRN #20 capsule 11/26/18 Unknown Rx Ibuprofen [Motrin] 600 mg PO Q8H PRN #20 tablet 11/26/18 Unknown Rx Prednisone [predniSONE 10 mg 10 mg PO .TAPER #1 tab.ds.pk 11/26/18 Unknown Rx (6-Day Pack, 21 Tabs)] cephALEXin [Keflex] 500 mg PO TID 10 Days #30 capsule 01/17/19 Unknown Rx Acetaminophen [Acetaminophen TAB] 975 mg PO Q6HR PRN #24 tablet 04/20/19 Unknown Rx Upper Extremity Exam - Exam General: Vital signs noted. No distress. Alert and acting appropriately. Head and Torso: No HEENT Abnormality, No Neck Tenderness, No Chest/Lungs Abnormality, No Abdominal Tenderness, No Back Tenderness Shoulder Exam: Yes Normal Range of Motion in Shoulder, No Shoulder Tenderness, No Clavicle Tenderness, No Shoulder Deformity, No AC Joint Tenderness Arm Exam: No Arm/Humerus Tenderness, No Arm Deformity Elbow: No Elbow Tenderness, No Normal Range of Motion in Elbow, No Elbow Deformity Forearm: No Forearm Tenderness, No Forearm Deformity, No Pain with Pronation, No Pain with Supination Wrist: Yes Normal ROM in Wrist, No Wrist Tenderness, No Wrist Deformity, No Snuffbox Tenderness, No Pain with Axial Thumb Compression Hand: Yes Normal ROM in Digit(s) (there is a clicking at the PIP joint nontender nonerythematous nonerythematous), No Hand Tenderness, No Hand Deformity, No Digit Tenderness, No Digit(s) Deformity, No Tendon Dysfunction ED Course Vital Signs 04/20/19 10:12 Temperature 97.6 F Pulse Rate 64 Respiratory 16 Rate Blood Pressure 124/53 [Left] O2 Sat by Pulse 98 Oximetry ED Medical Decision Making - Medical Decision Making 73-year-old male comes in for right thumb clicking for 2-3 days. Patient is given acetaminophen 975 mg. I discussed the patient to allow us finger to rest that it could possibly be a sprain or fractures noted patient has full range of motion. Patient is given a work excuse to return to work on Tuesday. Patient verbalized understanding. Critical care attestation.: If time is entered above; I have spent that time in minutes in the direct care of this critically ill patient, excluding procedure time. ED Disposition Clinical Impression: Pain of right thumb Disposition: - TO HOME OR SELFCARE Is pt being admited?: No Does the pt Need Aspirin: No Condition: Stable Instructions: Finger Sprain (ED) Additional Instructions: Please take Tylenol as needed for pain. Allow her finger to rest. And follow- up with the [facility] if symptoms persist or gets worse. Prescriptions: Acetaminophen [Acetaminophen TAB] 975 mg PO Q6HR PRN #24 tablet PRN Reason: Pain , Severe (7-10) Referrals: [facility] [Outside] - 3-5 Days Forms: Work/School Release Form(ED)
== END 2019-04-20 11:12 | disposition home or self-care (01) ==
LOC: ED 10:03
DX: M79.644 Pain in right finger(s) (principal); I10 Essential (primary) hypertension

== ENCOUNTER 2019-12-15 22:09 | Emergency (ER) | payer MEDICARE, OTHER ==
[2019-12-15] MEDS ORDERED: ACETAMINOPHEN 500 MG TAB PO ONE (23:48)
[2019-12-15] MEDS ORDERED: IBUPROFEN 600 MG TAB PO ONE (23:48)
[2019-12-16 00:24] LABS: Bilirubin,Urine NEG (Negative); Blood,Urine NEG (Negative); Color,Urine Yellow (Yellow); Mucus,Urine FEW /HPF; Protein,Urine <15 mg/dL mg/dL (Negative); Urobilinogen,Urine < 2.0 mg/dL (<2.0)
[2019-12-16] MEDS ORDERED: cephALEXin 500 MG CAP PO ONE (00:40)
--- NOTE | 2019-12-16 01:40 | Emergency Department Report ---
ED Back Pain/Injury HPI - General Chief Complaint: Back Pain/Injury Stated Complaint: LOWER BACK PAIN Source: patient Limitations: No Limitations - History of Present Illness Initial Comments: Patient is 74-year-old white male with past medical history of chronic osteoarthritis and who presents to the ED with complaints of acute onset persistent low back pain after lifting a heavy laundry basket 8 hours ago. Patient states that the patient has been progressively getting worse since the incident occurred hours ago. Patient states that he was unable to sleep tonight because of lower back pain. Patient denies fever, chills, nausea, vomiting, numbness and tingling or weakness of lower extremities bilaterally, dysuria, hematuria, urinary frequency and urgency, chest pain, shortness of breath, abd ominal pain, diarrhea, fall, traumatic injury, urinary or bowel incontinence and a saddle paresthesia. MD Complaint: back pain, other (heavy lifting) -: Sudden, hour(s) (8) Similar Symptoms Previously: No Place: home Radiation: none Severity: moderate Severity scale (0 -10): 5 Quality: sharp, aching Consistency: constant Improves With: none Worsens With: movement Context: while lifting, turning/twisting, other (lifted laundry basket) Associated Symptoms: denies other symptoms. denies: weakness, chest pain, numbness, difficulty walking, cough, difficulty urinating, diaphoresis, incontinence, constipation, headaches, loss of appetite, nausea/vomiting, rash, shortness of breath - Related Data Home Medications Medication Instructions Recorded Confirmed Last Taken Ascorbic Acid [Vitamin C] 250 mg PO QDAY 06/30/16 05/23/17 06/30/16 Previous Rx's Medication Instructions Recorded Last Taken Type Nitrofurantoin [place]/M-Cryst 100 mg PO Q12HR #14 capsule 05/24/17 Unknown Rx [Macrobid CAP] Albuterol INH(or & Nicu Only) 2 puff IH ONCE #1 inha 01/04/18 Unknown Rx [ProAir HFA Inhaler] Amoxicillin/Potassium Clav 1 each PO BID #14 tablet 01/04/18 Unknown Rx [Augmentin 875-125 Tablet] Benzonatate [Tessalon Perles] 100 mg PO Q8HR #30 capsule 01/04/18 Unknown Rx Prednisone [predniSONE 5 mg (6-Day 5 mg PO .TAPER #1 tab.ds.pk 01/04/18 Unknown Rx Pack, 21 Tabs)] Azithromycin [Zithromax Z-RAMILA] 250 mg PO DAILY #6 tablet 01/11/18 Unknown Rx Benzonatate [Tessalon Perles] 100 mg PO Q8HR PRN #30 capsule 02/25/18 Unknown Rx Fluticasone [Flonase] 1 spray NS QDAY #1 bottle 02/25/18 Unknown Rx Loratadine (Nf) [Claritin] 10 mg PO DAILY #30 tablet 02/25/18 Unknown Rx Aspirin [Aspirin BABY CHEW TAB] 81 mg PO QDAY #30 tab.chew 06/22/18 Unknown Rx Ondansetron [Zofran Odt] 4 mg PO Q8HR PRN #14 tab.rapdis 09/16/18 Unknown Rx traMADoL [Ultram 50 MG tab] 50 mg PO Q4HR PRN #14 tablet 09/16/18 Unknown Rx Ibuprofen [Motrin] 600 mg PO Q8H PRN #20 tablet 10/19/18 Unknown Rx traMADoL [Ultram] 50 mg PO Q6HR PRN #10 tablet 10/19/18 Unknown Rx Azithromycin [Zithromax Z-RAMILA] 250 mg PO DAILY #6 tablet 11/26/18 Unknown Rx Benzonatate [Tessalon Perle] 100 mg PO Q8H PRN #20 capsule 11/26/18 Unknown Rx Ibuprofen [Motrin] 600 mg PO Q8H PRN #20 tablet 11/26/18 Unknown Rx Prednisone [predniSONE 10 mg 10 mg PO .TAPER #1 tab.ds.pk 11/26/18 Unknown Rx (6-Day Pack, 21 Tabs)] cephALEXin [Keflex] 500 mg PO TID 10 Days #30 capsule 01/17/19 Unknown Rx Acetaminophen [Acetaminophen TAB] 975 mg PO Q6HR PRN #24 tablet 04/20/19 Unknown Rx Fluticasone [Flonase] 1 spray NS QDAY #1 bottle 07/14/19 Unknown Rx Cyclobenzaprine HCl [Flexeril 5 MG 5 mg PO QHS PRN #12 tablet 12/16/19 Unknown Rx TAB] Naproxen 500 mg PO Q12H PRN #24 tablet 12/16/19 Unknown Rx cephALEXin [Keflex] 500 mg PO Q8HR #30 cap 12/16/19 Unknown Rx Allergies Allergy/AdvReac Type Severity Reaction Status Date / Time No Known Allergies Allergy Verified 01/17/19 12:58 ED Review of Systems ROS: Stated complaint: LOWER BACK PAIN Other details as noted in HPI Constitutional: denies: chills, fever Eyes: denies: eye pain, eye discharge, vision change ENT: denies: ear pain, throat pain Respiratory: denies: cough, shortness of breath, wheezing Cardiovascular: denies: chest pain, palpitations Endocrine: no symptoms reported Gastrointestinal: denies: abdominal pain, nausea, diarrhea Genitourinary: denies: urgency, dysuria Musculoskeletal: back pain (lower back pain), arthralgia, myalgia. denies: joint swelling Skin: denies: rash, lesions Neurological: denies: headache, weakness, paresthesias Psychiatric: denies: anxiety, depression Hematological/Lymphatic: denies: easy bleeding, easy bruising ED Past Medical Hx - Past Medical History Previous Medical History?: Yes Hx Hypertension: Yes (controlled) Additional medical history: prostate problems, self cath @ times - Surgical History Past Surgical History?: Yes Additional Surgical History: left knee fx - Social History Smoking Status: Never Smoker Substance Use Type: None - Medications Home Medications: Home Medications Medication Instructions Recorded Confirmed Last Taken Type Ascorbic Acid [Vitamin C] 250 mg PO QDAY 06/30/16 05/23/17 06/30/16 History Nitrofurantoin [place]/M-Cryst 100 mg PO Q12HR #14 capsule 05/24/17 Unknown Rx [Macrobid CAP] Albuterol INH(or & Nicu Only) 2 puff IH ONCE #1 inha 01/04/18 Unknown Rx [ProAir HFA Inhaler] Amoxicillin/Potassium Clav 1 each PO BID #14 tablet 01/04/18 Unknown Rx [Augmentin 875-125 Tablet] Benzonatate [Tessalon Perles] 100 mg PO Q8HR #30 capsule 01/04/18 Unknown Rx Prednisone [predniSONE 5 mg (6-Day 5 mg PO .TAPER #1 tab.ds.pk 01/04/18 Unknown Rx Pack, 21 Tabs)] Azithromycin [Zithromax Z-RAMILA] 250 mg PO DAILY #6 tablet 01/11/18 Unknown Rx Benzonatate [Tessalon Perles] 100 mg PO Q8HR PRN #30 capsule 02/25/18 Unknown Rx Fluticasone [Flonase] 1 spray NS QDAY #1 bottle 02/25/18 Unknown Rx Loratadine (Nf) [Claritin] 10 mg PO DAILY #30 tablet 02/25/18 Unknown Rx Aspirin [Aspirin BABY CHEW TAB] 81 mg PO QDAY #30 tab.chew 06/22/18 Unknown Rx Ondansetron [Zofran Odt] 4 mg PO Q8HR PRN #14 tab.rapdis 09/16/18 Unknown Rx traMADoL [Ultram 50 MG tab] 50 mg PO Q4HR PRN #14 tablet 09/16/18 Unknown Rx Ibuprofen [Motrin] 600 mg PO Q8H PRN #20 tablet 10/19/18 Unknown Rx traMADoL [Ultram] 50 mg PO Q6HR PRN #10 tablet 10/19/18 Unknown Rx Azithromycin [Zithromax Z-RAMILA] 250 mg PO DAILY #6 tablet 11/26/18 Unknown Rx Benzonatate [Tessalon Perle] 100 mg PO Q8H PRN #20 capsule 11/26/18 Unknown Rx Ibuprofen [Motrin] 600 mg PO Q8H PRN #20 tablet 11/26/18 Unknown Rx Prednisone [predniSONE 10 mg 10 mg PO .TAPER #1 tab.ds.pk 11/26/18 Unknown Rx (6-Day Pack, 21 Tabs)] cephALEXin [Keflex] 500 mg PO TID 10 Days #30 capsule 01/17/19 Unknown Rx Acetaminophen [Acetaminophen TAB] 975 mg PO Q6HR PRN #24 tablet 04/20/19 Unknown Rx Fluticasone [Flonase] 1 spray NS QDAY #1 bottle 07/14/19 Unknown Rx Cyclobenzaprine HCl [Flexeril 5 MG 5 mg PO QHS PRN #12 tablet 12/16/19 Unknown Rx TAB] Naproxen 500 mg PO Q12H PRN #24 tablet 12/16/19 Unknown Rx cephALEXin [Keflex] 500 mg PO Q8HR #30 cap 12/16/19 Unknown Rx ED Physical Exam - General Limitations: No Limitations General appearance: alert, in no apparent distress - Head Head exam: Present: atraumatic, normocephalic - Eye Eye exam: Present: normal appearance, PERRL, EOMI Pupils: Present: normal accommodation - ENT ENT exam: Present: normal exam, normal orophraynx, mucous membranes moist, TM's normal bilaterally, normal external ear exam - Neck Neck exam: Present: normal inspection, full ROM. Absent: tenderness - Respiratory Respiratory exam: Present: normal lung sounds bilaterally. Absent: respiratory distress, wheezes, chest wall tenderness, decreased breath sounds - Cardiovascular Cardiovascular Exam: Present: regular rate, normal rhythm, normal heart sounds. Absent: systolic murmur, diastolic murmur, rubs, gallop - GI/Abdominal GI/Abdominal exam: Present: soft, normal bowel sounds. Absent: tenderness, guarding, rebound, hyperactive bowel sounds, hypoactive bowel sounds - Extremities Exam Extremities exam: Present: normal inspection, full ROM, normal capillary refill - Back Exam Back exam: Present: normal inspection, full ROM, tenderness (palpable diffuse lumbosacral paraspinal musculoskeletal tenderness), muscle spasm, paraspinal tenderness - Neurological Exam Neurological exam: Present: alert, oriented X3, CN II-XII intact, normal gait, reflexes normal - Psychiatric Psychiatric exam: Present: normal affect, normal mood - Skin Skin exam: Present: warm, dry, intact, normal color. Absent: rash ED Course Vital Signs 12/15/19 22:14 Temperature 98.4 F Pulse Rate 74 Respiratory 18 Rate Blood Pressure 146/73 O2 Sat by Pulse 97 Oximetry ED Medical Decision Making - Medical Decision Making This is a 74-year-old male who presented to the ED with acute onset persistent low back pain for 8 hours after heavy lifting all laundry basket 8 hours ago. In the ED, patient is alert and oriented 3 and is not in distress but appears to be in significant pain. Patient was treated for pain in the ED and urinalysis shows significant urinary tract infection. Patient was also treated in the ED with oral antibiotics Keflex 1 g by mouth 1. On reevaluation, patient's pain is well-controlled with medications, patient is ambulatory in the ED with no difficulties, eating chips from the vending machine and carries out normal conversation. Patient was discharged home on pain medications and antibiotics for UTI. Patient was advised to follow-up with his primary care physician in 5-7 days for reevaluation or return to the ED immediately if symptoms get worse. - Differential Diagnosis Muscle spasm; muscle strain; UTI Critical care attestation.: If time is entered above; I have spent that time in minutes in the direct care of this critically ill patient, excluding procedure time. ED Disposition Clinical Impression: Spasm of muscle of lower back, Acute urinary tract infection Acute low back pain Qualifiers: Back pain laterality: unspecified Sciatica presence: without sciatica Qualified Code(s): M54.5 - Low back pain Disposition: TO HOME OR SELFCARE Is pt being admited?: No Does the pt Need Aspirin: No Condition: Stable Instructions: Muscle Spasm (ED), Acute Low Back Pain (ED), Urinary Tract Infection in Men (ED) Additional Instructions: The symptoms are likely due to muscle spasms of the lower back after heavy lifting of laundry basket, complicated by acute urinary tract infection. Therefore take medications, drink plenty of fluids and follow-up with your primary care physician in 7-10 days for reevaluation. Return to the ED immediately if symptoms worsen. Prescriptions: Cyclobenzaprine HCl [Flexeril 5 MG TAB] 5 mg PO QHS PRN #12 tablet PRN Reason: Muscle Spasm cephALEXin [Keflex] 500 mg PO Q8HR #30 cap Naproxen 500 mg PO Q12H PRN #24 tablet PRN Reason: Pain , Severe (7-10) Referrals: EARL MARSHALL MD [Staff Physician] - 7-10 days Time of Disposition: 01:37 Print Language: ARMENIAN
[2019-12-16 01:59] VITALS: BP 166/100
== END 2019-12-16 01:56 | disposition home or self-care (01) ==
LOC: ED 22:09
DX: M62.830 Muscle spasm of back (principal); N39.0 Urinary tract infection, site not specified; I10 Essential (primary) hypertension; Z98.890 Other specified postprocedural states; Z79.2 Long term (current) use of antibiotics; Z79.899 Other long term (current) drug therapy
CPT/HCPCS: 81001; 87086

== ENCOUNTER 2020-01-25 15:02 | Emergency (ER) | payer MEDICARE, OTHER ==
--- NOTE | 2020-01-25 17:20 | Event Note ---
ED Screening Note ED Screening Note: The patient was seen in triage for dysuria, flank pain and suprapubic pain. WAsd treated for UTI 5 weeks ago and nearly resolved, and the last week has progressively worsen Labs/imaging ordered to evaluate for a cause of this complaint. Vital signs reviewed, patient awake and alert in NAD. Exam suprapubic tenderness and left CVA tenderness This initial assessment/diagnostic orders/clinical plan/treatment(s) is/are subject to change based on patients health status, clinical progression and re-assessment by fellow clinical providers in the ED. Further treatment and workup at subsequent clinical providers discretion. Patient/guardian urged not to elope from the ED as their condition may be serious if not clinically assessed and managed. Initial orders include: UA
[2020-01-25 18:11] LABS: Bacteria,Urine 1+ /HPF (Negative); Bilirubin,Urine NEG (Negative); Blood,Urine SM (Negative); Color,Urine Yellow (Yellow); Mucus,Urine FEW /HPF; Protein,Urine <15 mg/dL mg/dL (Negative); Urobilinogen,Urine < 2.0 mg/dL (<2.0)
[2020-01-25] MEDS ORDERED: LIDOCAINE-MPF (1%) 10 MG/1 ML VIAL 5 ML INFILTRATI ONE (19:06)
[2020-01-25 19:22] LABS: Basophils % (Auto) 0.2 % (0.0-1.8); Eosinophils # (Auto) 0.1 K/mm3 (0.0-0.4); Hematocrit 38.4 % (35.5-45.6); Hemoglobin 12.9 gm/dl (11.8-15.2); Lymphocytes # (Auto) 1.7 K/mm3 (1.2-5.4); Lymphocytes % (Auto) 20.6 % (13.4-35.0); Mean Corpuscular HGB Conc 34 % (32-34); Mean Corpuscular Volume 95 fl (84-94); Monocytes # (Auto) 0.9 K/mm3 (0.0-0.8); Monocytes % (Auto) 11.3 % (0.0-7.3); Platelet Count 239 K/mm3 (140-440); Red Blood Count 4.04 M/mm3 (3.65-5.03); Red Cell Distribution Width 14.4 % (13.2-15.2)
--- NOTE | 2020-01-25 19:30 | Emergency Department Report ---
ED Male HPI - General Chief complaint: Back Pain/Injury Stated complaint: LOWER BACK PAIN Time Seen by Provider: 01/25/20 17:17 Source: patient Mode of arrival: Ambulatory Limitations: No Limitations - History of Present Illness Initial comments: Patient is a 74-year-old male presents emergency room with complaints of left flank pain that began yesterday. He states that he has associated difficulty urinating. He states that he has a history of difficulty urinating and has self catheter for a very long time. He states that he gets his catheters from a pharmacy. He denies any dysuria, nausea, vomiting, diarrhea, fever. Patient was evaluated on 12/16/2019 and was diagnosed with a UTI at that time and was placed on Keflex. He states that his symptoms improved after that but then he began to feel symptoms again yesterday. He states that he does not have a urologist. - Related Data Home Medications Medication Instructions Recorded Confirmed Last Taken Ascorbic Acid [Vitamin C] 250 mg PO QDAY 06/30/16 05/23/17 06/30/16 Previous Rx's Medication Instructions Recorded Last Taken Type Nitrofurantoin [place]/M-Cryst 100 mg PO Q12HR #14 capsule 05/24/17 Unknown Rx [Macrobid CAP] Albuterol INH(or & Nicu Only) 2 puff IH ONCE #1 inha 01/04/18 Unknown Rx [ProAir HFA Inhaler] Amoxicillin/Potassium Clav 1 each PO BID #14 tablet 01/04/18 Unknown Rx [Augmentin 875-125 Tablet] Benzonatate [Tessalon Perles] 100 mg PO Q8HR #30 capsule 01/04/18 Unknown Rx Prednisone [predniSONE 5 mg (6-Day 5 mg PO .TAPER #1 tab.ds.pk 01/04/18 Unknown Rx Pack, 21 Tabs)] Azithromycin [Zithromax Z-RAMILA] 250 mg PO DAILY #6 tablet 01/11/18 Unknown Rx Benzonatate [Tessalon Perles] 100 mg PO Q8HR PRN #30 capsule 02/25/18 Unknown Rx Fluticasone [Flonase] 1 spray NS QDAY #1 bottle 02/25/18 Unknown Rx Loratadine (Nf) [Claritin] 10 mg PO DAILY #30 tablet 02/25/18 Unknown Rx Aspirin [Aspirin BABY CHEW TAB] 81 mg PO QDAY #30 tab.chew 06/22/18 Unknown Rx Ondansetron [Zofran Odt] 4 mg PO Q8HR PRN #14 tab.rapdis 09/16/18 Unknown Rx traMADoL [Ultram 50 MG tab] 50 mg PO Q4HR PRN #14 tablet 09/16/18 Unknown Rx Ibuprofen [Motrin] 600 mg PO Q8H PRN #20 tablet 10/19/18 Unknown Rx traMADoL [Ultram] 50 mg PO Q6HR PRN #10 tablet 10/19/18 Unknown Rx Azithromycin [Zithromax Z-RAMILA] 250 mg PO DAILY #6 tablet 11/26/18 Unknown Rx Benzonatate [Tessalon Perle] 100 mg PO Q8H PRN #20 capsule 11/26/18 Unknown Rx Ibuprofen [Motrin] 600 mg PO Q8H PRN #20 tablet 11/26/18 Unknown Rx Prednisone [predniSONE 10 mg 10 mg PO .TAPER #1 tab.ds.pk 11/26/18 Unknown Rx (6-Day Pack, 21 Tabs)] cephALEXin [Keflex] 500 mg PO TID 10 Days #30 capsule 01/17/19 Unknown Rx Acetaminophen [Acetaminophen TAB] 975 mg PO Q6HR PRN #24 tablet 04/20/19 Unknown Rx Fluticasone [Flonase] 1 spray NS QDAY #1 bottle 07/14/19 Unknown Rx Cyclobenzaprine HCl [Flexeril 5 MG 5 mg PO QHS PRN #12 tablet 12/16/19 Unknown Rx TAB] Naproxen 500 mg PO Q12H PRN #24 tablet 12/16/19 Unknown Rx cephALEXin [Keflex] 500 mg PO Q8HR #30 cap 12/16/19 Unknown Rx Ciprofloxacin HCl [Ciprofloxacin 500 mg PO BID 7 Days #14 tab 01/25/20 Unknown Rx TAB] Phenazopyridine [Pyridium] 100 mg PO TID PRN #20 tab 01/25/20 Unknown Rx cephALEXin [Keflex] 500 mg PO BID 10 Days #20 cap 01/25/20 Unknown Rx Allergies Allergy/AdvReac Type Severity Reaction Status Date / Time No Known Allergies Allergy Verified 01/17/19 12:58 ED Review of Systems ROS: Stated complaint: LOWER BACK PAIN Other details as noted in HPI Comment: All other systems reviewed and negative ED Past Medical Hx - Past Medical History Previous Medical History?: Yes Hx Hypertension: Yes (controlled) Additional medical history: prostate problems, self cath @ times - Surgical History Past Surgical History?: Yes Additional Surgical History: left knee fx - Social History Smoking Status: Never Smoker Substance Use Type: Alcohol - Medications Home Medications: Home Medications Medication Instructions Recorded Confirmed Last Taken Type Ascorbic Acid [Vitamin C] 250 mg PO QDAY 06/30/16 05/23/17 06/30/16 History Nitrofurantoin [place]/M-Cryst 100 mg PO Q12HR #14 capsule 05/24/17 Unknown Rx [Macrobid CAP] Albuterol INH(or & Nicu Only) 2 puff IH ONCE #1 inha 01/04/18 Unknown Rx [ProAir HFA Inhaler] Amoxicillin/Potassium Clav 1 each PO BID #14 tablet 01/04/18 Unknown Rx [Augmentin 875-125 Tablet] Benzonatate [Tessalon Perles] 100 mg PO Q8HR #30 capsule 01/04/18 Unknown Rx Prednisone [predniSONE 5 mg (6-Day 5 mg PO .TAPER #1 tab.ds.pk 01/04/18 Unknown Rx Pack, 21 Tabs)] Azithromycin [Zithromax Z-RAMILA] 250 mg PO DAILY #6 tablet 01/11/18 Unknown Rx Benzonatate [Tessalon Perles] 100 mg PO Q8HR PRN #30 capsule 02/25/18 Unknown Rx Fluticasone [Flonase] 1 spray NS QDAY #1 bottle 02/25/18 Unknown Rx Loratadine (Nf) [Claritin] 10 mg PO DAILY #30 tablet 02/25/18 Unknown Rx Aspirin [Aspirin BABY CHEW TAB] 81 mg PO QDAY #30 tab.chew 06/22/18 Unknown Rx Ondansetron [Zofran Odt] 4 mg PO Q8HR PRN #14 tab.rapdis 09/16/18 Unknown Rx traMADoL [Ultram 50 MG tab] 50 mg PO Q4HR PRN #14 tablet 09/16/18 Unknown Rx Ibuprofen [Motrin] 600 mg PO Q8H PRN #20 tablet 10/19/18 Unknown Rx traMADoL [Ultram] 50 mg PO Q6HR PRN #10 tablet 10/19/18 Unknown Rx Azithromycin [Zithromax Z-RAMILA] 250 mg PO DAILY #6 tablet 01/13/19 Unknown Rx Benzonatate [Tessalon Perle] 100 mg PO Q8H PRN #20 capsule 11/26/18 Unknown Rx Ibuprofen [Motrin] 600 mg PO Q8H PRN #20 tablet 11/26/18 Unknown Rx Prednisone [predniSONE 10 mg 10 mg PO .TAPER #1 tab.ds.pk 11/26/18 Unknown Rx (6-Day Pack, 21 Tabs)] cephALEXin [Keflex] 500 mg PO TID 10 Days #30 capsule 01/17/19 Unknown Rx Acetaminophen [Acetaminophen TAB] 975 mg PO Q6HR PRN #24 tablet 04/20/19 Unknown Rx Fluticasone [Flonase] 1 spray NS QDAY #1 bottle 07/14/19 Unknown Rx Cyclobenzaprine HCl [Flexeril 5 MG 5 mg PO QHS PRN #12 tablet 12/16/19 Unknown Rx TAB] Naproxen 500 mg PO Q12H PRN #24 tablet 12/16/19 Unknown Rx cephALEXin [Keflex] 500 mg PO Q8HR #30 cap 12/16/19 Unknown Rx Ciprofloxacin HCl [Ciprofloxacin 500 mg PO BID 7 Days #14 tab 01/25/20 Unknown Rx TAB] Phenazopyridine [Pyridium] 100 mg PO TID PRN #20 tab 01/25/20 Unknown Rx cephALEXin [Keflex] 500 mg PO BID 10 Days #20 cap 01/25/20 Unknown Rx ED Physical Exam - General Limitations: No Limitations General appearance: alert, in no apparent distress - Head Head exam: Present: atraumatic, normocephalic - Eye Eye exam: Present: normal appearance - ENT ENT exam: Present: mucous membranes moist - Respiratory Respiratory exam: Present: normal lung sounds bilaterally. Absent: respiratory distress, wheezes, rales, rhonchi, stridor, chest wall tenderness, accessory muscle use, decreased breath sounds, prolonged expiratory - Cardiovascular Cardiovascular Exam: Present: regular rate, normal rhythm, normal heart sounds. Absent: systolic murmur, diastolic murmur, rubs, gallop - GI/Abdominal GI/Abdominal exam: Present: soft, normal bowel sounds. Absent: distended, tenderness, guarding, rebound, rigid - Back Exam Back exam: Present: CVA tenderness (L) (mild). Absent: CVA tenderness (R) - Neurological Exam Neurological exam: Present: alert, oriented X3 - Psychiatric Psychiatric exam: Present: normal affect, normal mood - Skin Skin exam: Present: warm, dry, intact ED Course Vital Signs 01/25/20 01/25/20 01/25/20 15:11 17:16 20:05 Temperature 97.9 F 97.9 F Pulse Rate 85 82 75 Respiratory 20 20 18 Rate Blood Pressure 155/81 155/81 Blood Pressure 154/79 [Left] O2 Sat by Pulse 97 96 99 Oximetry ED Medical Decision Making - Lab Data Result diagrams: 01/25/20 19:03 01/25/20 19:03 Lab Results 01/25/20 01/25/20 01/25/20 Range/Units 17:55 19:03 19:03 WBC 8.2 (4.5-11.0) K/mm3 RBC 4.04 (3.65-5.03) M/mm3 Hgb 12.9 (11.8-15.2) gm/dl Hct 38.4 (35.5-45.6) % MCV 95 H (84-94) fl MCH 32 (28-32) pg MCHC 34 (32-34) % RDW 14.4 (13.2-15.2) % Plt Count 239 (140-440) K/mm3 Lymph % (Auto) 20.6 (13.4-35.0) % Valley % (Auto) 11.3 H (0.0-7.3) % Eos % (Auto) 1.0 (0.0-4.3) % Baso % (Auto) 0.2 (0.0-1.8) % Lymph # 1.7 (1.2-5.4) K/mm3 Valley # 0.9 H (0.0-0.8) K/mm3 Eos # 0.1 (0.0-0.4) K/mm3 Baso # 0.0 (0.0-0.1) K/mm3 Seg Neutrophils % 66.9 (40.0-70.0) % Seg Neutrophils # 5.5 (1.8-7.7) K/mm3 Sodium 138 (137-145) mmol/L Potassium 3.5 L (3.6-5.0) mmol/L Chloride 103.3 (98-107) mmol/L Carbon Dioxide 20 L (22-30) mmol/L Anion Gap 18 mmol/L BUN 12 (9-20) mg/dL Creatinine 0.8 (0.8-1.5) mg/dL Estimated GFR > 60 ml/min BUN/Creatinine Ratio 15 % Glucose 126 H (75-100) mg/dL Calcium 9.1 (8.4-10.2) mg/dL Urine Color Yellow (Yellow) Urine Turbidity Slightly-cloudy (Clear) Urine pH 5.0 (5.0-7.0) Ur Specific [place] 1.016 (1.003-1.030) Urine Protein <15 mg/dl (Negative) mg/dL Urine Glucose (UA) Neg (Negative) mg/dL Urine Ketones Tr (Negative) mg/dL Urine Blood Sm (Negative) Urine Nitrite Neg (Negative) Urine Bilirubin Neg (Negative) Urine Urobilinogen < 2.0 (<2.0) mg/dL Ur Leukocyte Esterase Mod (Negative) Urine WBC (Auto) 42.0 H (0.0-6.0) /HPF Urine RBC (Auto) 11.0 (0.0-6.0) /HPF U Epithel Cells (Auto) < 1.0 (0-13.0) /HPF Urine Bacteria (Auto) 1+ (Negative) /HPF Urine Mucus Few /HPF - Medical Decision Making Patient is a 74-year-old male presents emergency room with complaints of left flank pain that began yesterday. He states that he has associated difficulty urinating. He states that he has a history of difficulty urinating and has self catheter for a very long time. He states that he gets his catheters from a pharmacy. He denies any dysuria, nausea, vomiting, diarrhea, fever. Patient was evaluated on 12/16/2019 and was diagnosed with a UTI at that time and was leno renee on Keflex. He states that his symptoms improved after that but then he began to feel symptoms again yesterday. He states that he does not have a urologist. Vitals are stable. On exam mild left CVA tenderness to palpation. UA shows many white blood cells and moderate leukocyte esterase. Labs are stable. No leukocytosis. Kidney function is within normal limits. Patient given prescription for Keflex, ciprofloxacin, Pyridium. Advised patient that Pyridium will turn his urine orange in color and this was normal. Advised patient please take medication as prescribed. Increase your fluid intake over the next several days. Please follow-up with a urologist in the next 2 to 3 days. It is very important that you follow-up. You will need to have your urine retested to check for clearance of the bacteria. Return to the emergency room immediately for any new or worsening symptoms including but not limited to fever, vomiting, inability to tolerate by mouth intake, worsening abdominal pain, worsening back pain, etc. - Differential Diagnosis UTI, pyelonephritis, BPH, nephrolithiasis, prostatitis Critical care attestation.: If time is entered above; I have spent that time in minutes in the direct care of this critically ill patient, excluding procedure time. ED Disposition Clinical Impression: Left flank pain UTI (urinary tract infection) Qualifiers: Urinary tract infection type: acute cystitis Hematuria presence: without hematuria Qualified Code(s): N30.00 - Acute cystitis without hematuria Disposition: TO HOME OR SELFCARE Is pt being admited?: No Does the pt Need Aspirin: No Condition: Stable Instructions: Urinary Tract Infection in Men (ED), Flank Pain (ED) Additional Instructions: Please take medication as prescribed. Increase your fluid intake over the next several days. Please follow-up with a urologist in the next 2 to 3 days. It is very important that you follow-up. You will need to have your urine retested to check for clearance of the bacteria. Return to the emergency room immediately for any new or worsening symptoms including but not limited to fever, vomiting, inability to tolerate by mouth intake, worsening abdominal pain, worsening back pain, etc. Prescriptions: Ciprofloxacin HCl [Ciprofloxacin TAB] 500 mg PO BID 7 Days #14 tab cephALEXin [Keflex] 500 mg PO BID 10 Days #20 cap Phenazopyridine [Pyridium] 100 mg PO TID PRN #20 tab PRN Reason: urinary symptoms Referrals: SCOTT SLOAN MD [Staff Physician] - 2-3 Days Time of Disposition: 19:56 Print Language: ROMANSH
[2020-01-25 19:38] LABS: BUN/Creatinine Ratio 15; Blood Urea Nitrogen 12 mg/dL (9-20); Calcium 9.1 mg/dL (8.4-10.2); Hemolysis Index 22
[2020-01-25] MEDS ORDERED: POTASSIUM CHLORIDE ER 20 MEQ TAB PO ONE (19:41)
[2020-01-25 20:07] VITALS: BP 154/79
== END 2020-01-25 20:05 | disposition home or self-care (01) ==
LOC: ED 15:02
DX: N39.0 Urinary tract infection, site not specified (principal); I10 Essential (primary) hypertension; Z79.1 Long term (current) use of non-steroidal anti-inflammatories (NSAID); Z79.2 Long term (current) use of antibiotics; Z79.899 Other long term (current) drug therapy; Z98.890 Other specified postprocedural states
CPT/HCPCS: 36415; 80048; 81001; 85025; 87086; 96372; 99283; J0696; 87076; 87186

== ENCOUNTER 2020-03-21 18:22 | Emergency (ER) | payer MEDICARE, OTHER ==
[2020-03-21 18:43] VITALS: BP 149/85
--- NOTE | 2020-03-21 20:58 | Emergency Department Report ---
Chief Complaint: Extremity Injury, Lower Stated Complaint: LFT FOOT INJURY/PAIN Time Seen by Provider: 03/21/20 20:29 - HPI History of Present Illness: Patient is a 74-year-old male who presents emergency room with complaints of a left foot injury that occurred 2 weeks ago. He states that he had the bottom of his foot against a pallet in the basement. He states initially there was some bleeding but it resolved after placing some dressing. He states he has been steve aning with peroxide. He states he still has some discomfort to the left foot. He states he wanted the area to be examined. He denies any drainage or fever. He denies any allergies to medications. VSS On exam: No bony tenderness to palpation of the left foot or toes, no erythema, no edema, full range of motion of the left ankle, foot, digits, there is a small healing abrasion present to the plantar surface of the left foot, no erythema, no drainage, appears clean, dry, intact, no signs of infection, neurovascularly intact No signs of infection No bony tenderness to palpation Patient has full range of motion and is neurovascularly intact Patient is ambulatory and bearing weight without difficulty advised pt Please continue to keep area clean, dry, covered. Continue to wash with soap and water and immediately dry. May take Tylenol as needed for pain. Follow-up with your primary care doctor. Follow-up with an orthopedic doctor. Return to the emergency room for any new or worsening symptoms. Medical screening examination performed and there is no threat to life or limb at this time Patient will be referred to an orthopedic doctor and primary care doctor Discussed strict return precautions - Exam Vital Signs: Vital Signs 03/21/20 18:42 Temperature 98.2 F Pulse Rate 71 Respiratory 14 Rate Blood Pressure 149/85 O2 Sat by Pulse 98 Oximetry MSE screening note: Focused history and physical exam performed. ED Disposition for MSE Clinical Impression: Left foot pain, Abrasion Disposition: Z-07 MED SCREENING EXAM-LEFT Is pt being admited?: No Does the pt Need Aspirin: No Condition: Stable Instructions: Puncture Wound (ED), Arthralgia (ED) Additional Instructions: Please continue to keep area clean, dry, covered. Continue to wash with soap and water and immediately dry. May take Tylenol as needed for pain. Follow-up with your primary care doctor. Follow-up with an orthopedic doctor. Return to the emergency room for any new or worsening symptoms. Referrals: PRIMARY CARE, [Primary Care Provider] - 2-3 Days GWYN REED MD [Staff Physician] - 2-3 Days [facility] [Provider Group] - 2-3 Days Time of Disposition: 21:02 Print Language: SAUDI ARABIAN
== END 2020-03-21 21:08 | disposition left against medical advice (07) ==
LOC: ED 18:22
DX: S90.812A Abrasion, left foot, initial encounter (principal); X58.XXXA Exposure to other specified factors, initial encounter; Y93.89 Activity, other specified; Y92.89 Other specified places as the place of occurrence of the external cause; Y99.8 Other external cause status
CPT/HCPCS: 99282

== ENCOUNTER 2020-07-22 20:46 | Emergency (ER) | payer MEDICARE, OTHER ==
[2020-07-22 21:59] VITALS: BP 139/81
[2020-07-22] MEDS ORDERED: ACETAMINOPHEN 500 MG TAB PO ONE (22:32)
[2020-07-22] MEDS ORDERED: SODIUM CHLORIDE 0.9% 1000 ML 1,000 ML IV ONE (22:32)
--- NOTE | 2020-07-22 22:34 | Emergency Department Report ---
ED General Adult HPI - General Chief complaint: Upper Respiratory Infection Stated complaint: FLU LIKE SYMPTOMS FOR A WEEK Source: patient Mode of arrival: Ambulatory Limitations: No Limitations - History of Present Illness Initial comments: Patient is a 74-year-old white male with a history of hypertension who presents to the ED with complaint of acute onset persistent low back pain, nasal and sinus congestion, generalized fatigue and weakness, persistent dry cough and lack of appetite for the last 1 week. Patient states that he has been taking multivitamins at home which appear to have helped a little bit with his appetite but states that the lower back pain and nasal and sinus congestion and dry cough up been persistent. Patient states that he has not been closer to or in contact with anyone with similar symptoms. Patient denies hematuria, dysuria, chest pain, shortness of breath, abdominal pain, nausea and vomiting, diarrhea, dizziness, syncope, fever, chills, headache, hematuria or testicular pain. MD Complaint: dry cough, nasal congestion, body aches and pain, weakness; low back pain -: Sudden, week(s) (1) Location: chest, back (low back pain) Radiation: non-radiation Severity scale (0 -10): 6 Quality: aching, sharp Consistency: constant Improves with: none Worsens with: none Associated Symptoms: denies other symptoms, cough, loss of appetite, malaise, weakness. denies: confusion, chest pain, diaphoresis, fever/chills, nausea/vomiting, rash, seizure, shortness of breath, syncope Treatments Prior to Arrival: none - Related Data Home Medications Medication Instructions Recorded Confirmed Last Taken Ascorbic Acid [Vitamin C] 250 mg PO QDAY 06/30/16 05/23/17 06/30/16 Previous Rx's Medication Instructions Recorded Last Taken Type Nitrofurantoin [place]/M-Cryst 100 mg PO Q12HR #14 capsule 05/24/17 Unknown Rx [Macrobid CAP] Albuterol Mdi (or & Nicu Only) 2 puff IH ONCE #1 inha 01/04/18 Unknown Rx [ProAir HFA Inhaler] Amoxicillin/Potassium Clav 1 each PO BID #14 tablet 01/04/18 Unknown Rx [Augmentin 875-125 Tablet] Prednisone [predniSONE 5 mg (6-Day 5 mg PO .TAPER #1 tab.ds.pk 01/04/18 Unknown Rx Pack, 21 Tabs)] Azithromycin [Zithromax Z-RAMILA] 250 mg PO DAILY #6 tablet 01/11/18 Unknown Rx Benzonatate [Tessalon Perles] 100 mg PO Q8HR PRN #30 capsule 02/25/18 Unknown Rx Fluticasone [Flonase] 1 spray NS QDAY #1 bottle 02/25/18 Unknown Rx Loratadine (Nf) [Claritin] 10 mg PO DAILY #30 tablet 02/25/18 Unknown Rx Aspirin [Aspirin BABY CHEW TAB] 81 mg PO QDAY #30 tab.chew 06/22/18 Unknown Rx Ondansetron [Zofran Odt] 4 mg PO Q8HR PRN #14 tab.rapdis 09/16/18 Unknown Rx traMADoL [Ultram 50 MG tab] 50 mg PO Q4HR PRN #14 tablet 09/16/18 Unknown Rx traMADoL [Ultram] 50 mg PO Q6HR PRN #10 tablet 10/19/18 Unknown Rx Azithromycin [Zithromax Z-RAMILA] 250 mg PO DAILY #6 tablet 11/26/18 Unknown Rx Benzonatate [Tessalon Perle] 100 mg PO Q8H PRN #20 capsule 11/26/18 Unknown Rx Ibuprofen [Motrin] 600 mg PO Q8H PRN #20 tablet 11/26/18 Unknown Rx Prednisone [predniSONE 10 mg 10 mg PO .TAPER #1 tab.ds.pk 11/26/18 Unknown Rx (6-Day Pack, 21 Tabs)] cephALEXin [Keflex] 500 mg PO TID 10 Days #30 capsule 01/17/19 Unknown Rx Acetaminophen [Acetaminophen TAB] 975 mg PO Q6HR PRN #24 tablet 04/20/19 Unknown Rx Fluticasone [Flonase] 1 spray NS QDAY #1 bottle 07/14/19 Unknown Rx Cyclobenzaprine HCl [Flexeril 5 MG 5 mg PO QHS PRN #12 tablet 12/16/19 Unknown Rx TAB] Naproxen 500 mg PO Q12H PRN #24 tablet 12/16/19 Unknown Rx cephALEXin [Keflex] 500 mg PO Q8HR #30 cap 12/16/19 Unknown Rx Ciprofloxacin HCl [Ciprofloxacin 500 mg PO BID 7 Days #14 tab 01/25/20 Unknown Rx TAB] Phenazopyridine [Pyridium] 100 mg PO TID PRN #20 tab 01/25/20 Unknown Rx cephALEXin [Keflex] 500 mg PO BID 10 Days #20 cap 01/25/20 Unknown Rx Benzonatate [Tessalon Perles] 100 mg PO Q8HR #30 capsule 07/23/20 Unknown Rx Cetirizine HCl [Zyrtec 10mg tab] 10 mg PO DAILY #30 tablet 07/23/20 Unknown Rx Ibuprofen [Motrin 600 MG tab] 600 mg PO Q8H PRN #30 tablet 07/23/20 Unknown Rx cephALEXin [Keflex] 500 mg PO Q8HR #30 cap 07/23/20 Unknown Rx predniSONE [Deltasone] 40 mg PO QDAY #10 tab 07/23/20 Unknown Rx Allergies Allergy/AdvReac Type Severity Reaction Status Date / Time No Known Allergies Allergy Verified 03/21/20 18:41 ED Review of Systems ROS: Stated complaint: FLU LIKE SYMPTOMS FOR A WEEK Other details as noted in HPI Constitutional: denies: chills, fever Eyes: denies: eye pain, eye discharge, vision change ENT: congestion. denies: ear pain, throat pain Respiratory: cough. denies: shortness of breath, wheezing Cardiovascular: denies: chest pain, palpitations, syncope Endocrine: no symptoms reported Gastrointestinal: denies: abdominal pain, nausea, vomiting, diarrhea Genitourinary: denies: urgency, dysuria Musculoskeletal: back pain (low back), arthralgia, myalgia. denies: joint swelling Skin: denies: rash, lesions Neurological: denies: headache, weakness, paresthesias Psychiatric: denies: anxiety, depression Hematological/Lymphatic: denies: easy bleeding, easy bruising ED Past Medical Hx - Past Medical History Hx Hypertension: Yes (controlled) Additional medical history: prostate problems, self cath @ times - Surgical History Additional Surgical History: left knee fx - Social History Smoking Status: Never Smoker Substance Use Type: Alcohol - Medications Home Medications: Home Medications Medication Instructions Recorded Confirmed Last Taken Type Ascorbic Acid [Vitamin C] 250 mg PO QDAY 06/30/16 05/23/17 06/30/16 History Nitrofurantoin [place]/M-Cryst 100 mg PO Q12HR #14 capsule 05/24/17 Unknown Rx [Macrobid CAP] Albuterol Mdi (or & Nicu Only) 2 puff IH ONCE #1 inha 01/04/18 Unknown Rx [ProAir HFA Inhaler] Amoxicillin/Potassium Clav 1 each PO BID #14 tablet 01/04/18 Unknown Rx [Augmentin 875-125 Tablet] Prednisone [predniSONE 5 mg (6-Day 5 mg PO .TAPER #1 tab.ds.pk 01/04/18 Unknown Rx Pack, 21 Tabs)] Azithromycin [Zithromax Z-RAMILA] 250 mg PO DAILY #6 tablet 01/11/18 Unknown Rx Benzonatate [Tessalon Perles] 100 mg PO Q8HR PRN #30 capsule 02/25/18 Unknown Rx Fluticasone [Flonase] 1 spray NS QDAY #1 bottle 02/25/18 Unknown Rx Loratadine (Nf) [Claritin] 10 mg PO DAILY #30 tablet 02/25/18 Unknown Rx Aspirin [Aspirin BABY CHEW TAB] 81 mg PO QDAY #30 tab.chew 06/22/18 Unknown Rx Ondansetron [Zofran Odt] 4 mg PO Q8HR PRN #14 tab.rapdis 09/16/18 Unknown Rx traMADoL [Ultram 50 MG tab] 50 mg PO Q4HR PRN #14 tablet 09/16/18 Unknown Rx traMADoL [Ultram] 50 mg PO Q6HR PRN #10 tablet 10/19/18 Unknown Rx Azithromycin [Zithromax Z-RAMILA] 250 mg PO DAILY #6 tablet 11/26/18 Unknown Rx Benzonatate [Tessalon Perle] 100 mg PO Q8H PRN #20 capsule 11/26/18 Unknown Rx Ibuprofen [Motrin] 600 mg PO Q8H PRN #20 tablet 11/26/18 Unknown Rx Prednisone [predniSONE 10 mg 10 mg PO .TAPER #1 tab.ds.pk 11/26/18 Unknown Rx (6-Day Pack, 21 Tabs)] cephALEXin [Keflex] 500 mg PO TID 10 Days #30 capsule 01/17/19 Unknown Rx Acetaminophen [Acetaminophen TAB] 975 mg PO Q6HR PRN #24 tablet 04/20/19 Unknown Rx Fluticasone [Flonase] 1 spray NS QDAY #1 bottle 07/14/19 Unknown Rx Cyclobenzaprine HCl [Flexeril 5 MG 5 mg PO QHS PRN #12 tablet 12/16/19 Unknown Rx TAB] Naproxen 500 mg PO Q12H PRN #24 tablet 12/16/19 Unknown Rx cephALEXin [Keflex] 500 mg PO Q8HR #30 cap 12/16/19 Unknown Rx Ciprofloxacin HCl [Ciprofloxacin 500 mg PO BID 7 Days #14 tab 01/25/20 Unknown Rx TAB] Phenazopyridine [Pyridium] 100 mg PO TID PRN #20 tab 01/25/20 Unknown Rx cephALEXin [Keflex] 500 mg PO BID 10 Days #20 cap 01/25/20 Unknown Rx Benzonatate [Tessalon Perles] 100 mg PO Q8HR #30 capsule 07/23/20 Unknown Rx Cetirizine HCl [Zyrtec 10mg tab] 10 mg PO DAILY #30 tablet 07/23/20 Unknown Rx Ibuprofen [Motrin 600 MG tab] 600 mg PO Q8H PRN #30 tablet 07/23/20 Unknown Rx cephALEXin [Keflex] 500 mg PO Q8HR #30 cap 07/23/20 Unknown Rx predniSONE [Deltasone] 40 mg PO QDAY #10 tab 07/23/20 Unknown Rx ED Physical Exam - General Limitations: No Limitations General appearance: alert, in no apparent distress - Head Head exam: Present: atraumatic, normocephalic, normal inspection - Eye Eye exam: Present: normal appearance, PERRL, EOMI Pupils: Present: normal accommodation - ENT ENT exam: Present: normal exam, normal orophraynx, mucous membranes moist, TM's normal bilaterally, normal external ear exam - Neck Neck exam: Present: normal inspection, full ROM. Absent: tenderness, lymphadenopathy - Respiratory Respiratory exam: Present: normal lung sounds bilaterally. Absent: respiratory distress, wheezes, rales, rhonchi, chest wall tenderness, accessory muscle use, decreased breath sounds, prolonged expiratory - Cardiovascular Cardiovascular Exam: Present: regular rate, normal rhythm, normal heart sounds. Absent: systolic murmur, diastolic murmur, rubs, gallop - GI/Abdominal GI/Abdominal exam: Present: soft, normal bowel sounds. Absent: tenderness, guarding, rebound, hyperactive bowel sounds, hypoactive bowel sounds - Extremities Exam Extremities exam: Present: normal inspection, full ROM, normal capillary refill - Back Exam Back exam: Present: normal inspection, full ROM, tenderness (Palpable lumbosacral paraspinal musculoskeletal tenderness), muscle spasm, paraspinal tenderness - Neurological Exam Neurological exam: Present: alert, oriented X3, CN II-XII intact, normal gait, reflexes normal - Psychiatric Psychiatric exam: Present: normal affect, normal mood - Skin Skin exam: Present: warm, dry, intact, normal color. Absent: rash ED Course Vital Signs 07/22/20 21:26 Temperature 98.3 F Pulse Rate 71 Respiratory 16 Rate Blood Pressure 139/81 O2 Sat by Pulse 97 Oximetry ED Medical Decision Making - Lab Data Result diagrams: 07/22/20 22:42 07/22/20 22:42 - Radiology Data Radiology results: report reviewed, image reviewed Findings [facility] [address] [place] [address] XRay Report Signed Patient: MICHAEL ADAMS MR#: [id number] : 1945 Acct:[id number] Age/Sex: 74 / M ADM Date: 07/22/20 Loc: ED Attending Dr: Ordering Physician: BRINDA REECE Date of Service: 07/22/20 Procedure(s): XR chest 1V ap Accession Number(s): [id number] cc: BRINDA REECE Fluoro Time In Minutes: CHEST 1 VIEW INDICATION / CLINICAL INFORMATION: cough. COMPARISON: 07/14/2019 FINDINGS: SUPPORT DEVICES: None. HEART / MEDIASTINUM: Stable. LUNGS / PLEURA: No significant pulmonary or pleural abnormality. No pneumothorax. ADDITIONAL FINDINGS: No significant additional findings. IMPRESSION: 1. No acute findings or significant interval detrimental change. Signer Name: Gwyn Ellington MD Signed: 07/22/2020 11:19 PM Workstation Name: [id number] Transcribed By: Dictated By: GWYN ELLINGTON III Electronically Authenticated By: GWYN ELLINGTON III Signed Date/Time: 07/22/20 2319 DD/ 17 TD/TT: - Medical Decision Making This is a 74-year-old white male with a history of hypertension who presents to the ED with complaint of acute onset persistent low back pain, nasal and sinus congestion, generalized fatigue and weakness, persistent dry cough and lack of appetite for the last 1 week. Patient states that he has been taking multivitamins at home which appear to have helped a little bit with his appetite but states that the lower back pain and nasal and sinus congestion and dry cough up been persistent. Patient states that he has not been closer to or in contact with anyone with similar symptoms. In the ED, patient is alert and oriented x3 and is not in distress. Chest x-ray shows no acute cardiopulmonary abnormalities or pneumonitis. Lab test results were reviewed and are all nonactionable except for urinalysis that showed significant urinary tract infection. Patient was treated for pain in the ED and also received initial oral antibiotics Keflex in the ED. Patient was discharged home on pain medicati ons and antibiotics for UTI and was advised to follow-up with his primary care physician in 7 to 10 days for reevaluation or return to the ED immediately if symptoms get worse. - Differential Diagnosis Pneumonia; Bronchitis; URI; Muscle spasm; UTI Critical care attestation.: If time is entered above; I have spent that time in minutes in the direct care of this critically ill patient, excluding procedure time. ED Disposition Clinical Impression: Flu-like symptoms, Acute urinary tract infection, Spasm of muscle of lower back Disposition: DC-01 TO HOME OR SELFCARE Is pt being admited?: No Does the pt Need Aspirin: No Condition: Stable Instructions: Urinary Tract Infection in Men (ED), Muscle Spasm (ED), Upper Respiratory Infection (ED) Additional Instructions: All lab test results show no acute abnormalities except for urinalysis that showed significant urinary tract infection. Chest x-ray shows no acute cardiopulmonary abnormalities or pneumonitis. Therefore take medications with food, drink plenty of fluids and follow-up with your primary care physician in 7 to 10 days for reevaluation or return to the ED immediately if symptoms get worse. Prescriptions: predniSONE [Deltasone] 40 mg PO QDAY #10 tab cephALEXin [Keflex] 500 mg PO Q8HR #30 cap Ibuprofen [Motrin 600 MG tab] 600 mg PO Q8H PRN #30 tablet PRN Reason: Pain Benzonatate [Tessalon Perles] 100 mg PO Q8HR #30 capsule Cetirizine HCl [Zyrtec 10mg tab] 10 mg PO DAILY #30 tablet Referrals: [facility] [Provider Group] - 3-5 Days Time of Disposition: 02:06 Print Language: PALAUAN
[2020-07-22 23:01] LABS: Basophils % (Auto) 0.3 % (0.0-1.8); Eosinophils # (Auto) 0.1 K/mm3 (0.0-0.4); Eosinophils % (Auto) 2.5 % (0.0-4.3); Hematocrit 36.9 % (35.5-45.6); Hemoglobin 12.5 gm/dl (11.8-15.2); Lymphocytes # (Auto) 1.6 K/mm3 (1.2-5.4); Lymphocytes % (Auto) 33.6 % (13.4-35.0); Mean Corpuscular HGB Conc 34 % (32-34); Mean Corpuscular Volume 95 fl (84-94); Monocytes # (Auto) 0.7 K/mm3 (0.0-0.8); Monocytes % (Auto) 14.4 % (0.0-7.3); Platelet Count 235 K/mm3 (140-440); Red Cell Distribution Width 14.5 % (13.2-15.2)
--- NOTE | 2020-07-22 23:24 | XRay Report ---
CHEST 1 VIEW INDICATION / CLINICAL INFORMATION: cough. COMPARISON: 07/14/2019 FINDINGS: SUPPORT DEVICES: None. HEART / MEDIASTINUM: Stable. LUNGS / PLEURA: No significant pulmonary or pleural abnormality. No pneumothorax. ADDITIONAL FINDINGS: No significant additional findings. IMPRESSION: 1. No acute findings or significant interval detrimental change. Signer Name: Radhames Ellington MD Signed: 07/22/2020 11:19 PM Workstation Name: [id number]
[2020-07-22 23:30] LABS: Alanine Aminotransferase 11 units/L (7-56); Albumin 4.1 g/dL (3.9-5); BUN/Creatinine Ratio 13; Blood Urea Nitrogen 12 mg/dL (9-20); Calcium 9.4 mg/dL (8.4-10.2); Hemolysis Index 4
[2020-07-23 01:33] LABS: Bacteria,Urine 1+ /HPF (Negative); Bilirubin,Urine NEG (Negative); Blood,Urine NEG (Negative); Color,Urine Yellow (Yellow); Mucus,Urine FEW /HPF; Protein,Urine <15 mg/dL mg/dL (Negative)
[2020-07-23] MEDS ORDERED: ONDANSETRON 4 MG ODT TAB PO ONE (02:01)
[2020-07-23] MEDS ORDERED: cephALEXin 500 MG CAP PO ONE (02:01)
== END 2020-07-23 02:22 | disposition home or self-care (01) ==
LOC: ED 20:46
DX: N39.0 Urinary tract infection, site not specified (principal); M62.830 Muscle spasm of back; I10 Essential (primary) hypertension; Z79.899 Other long term (current) drug therapy
CPT/HCPCS: 36415; 71045; 80053; 81001; 84484; 85025; 87076; 87086; 87186; 96360; 99284; J7030; Q0162

== ENCOUNTER 2021-08-15 12:12 | Emergency (ER) | payer MEDICARE, OTHER ==
[2021-08-15 12:29] VITALS: BP 144/74
[2021-08-15] MEDS ORDERED: traMADol 50 MG TAB PO ONE (12:55)
--- NOTE | 2021-08-15 13:16 | Emergency Department Report ---
ED Back Pain/Injury HPI - General Chief Complaint: Back Pain/Injury Stated Complaint: LOW BACK PAIN Time Seen by Provider: 08/15/21 12:29 Source: patient Limitations: No Limitations - History of Present Illness Initial Comments: Chief complaint: I think it is my prostate gland HPI: This is a 75-year-old male with history of UTI, urinary retention requiring straight catheterization who presents with left flank pain. Patient has had pain in the left flank for 3 days. No association with movement lifting. She denies fever vomiting. No radiation. MD Complaint: back pain -: Gradual, days(s) (3 days) Similar Symptoms Previously: Yes Radiation: none Severity: mild Severity scale (0 -10): 4 Quality: dull Consistency: constant Improves With: none Worsens With: none Associated Symptoms: denies other symptoms - Related Data Home Medications Medication Instructions Recorded Confirmed Last Taken Ascorbic Acid [Vitamin C] 250 mg PO QDAY 06/30/16 05/23/17 06/30/16 Previous Rx's Medication Instructions Recorded Last Taken Type Nitrofurantoin [place]/M-Cryst 100 mg PO Q12HR #14 capsule 05/24/17 Unknown Rx [Macrobid CAP] Albuterol Mdi (or & Nicu Only) 2 puff IH ONCE #1 inha 01/04/18 Unknown Rx [ProAir HFA Inhaler] Amoxicillin/Potassium Clav 1 each PO BID #14 tablet 01/04/18 Unknown Rx [Augmentin 875-125 Tablet] Prednisone [predniSONE 5 mg (6-Day 5 mg PO .TAPER #1 tab.ds.pk 01/04/18 Unknown Rx Pack, 21 Tabs)] Azithromycin [Zithromax Z-RAMILA] 250 mg PO DAILY #6 tablet 01/11/18 Unknown Rx Benzonatate [Tessalon Perles] 100 mg PO Q8HR PRN #30 capsule 02/25/18 Unknown Rx Fluticasone [Flonase] 1 spray NS QDAY #1 bottle 02/25/18 Unknown Rx Loratadine (Nf) [Claritin] 10 mg PO DAILY #30 tablet 02/25/18 Unknown Rx Aspirin [Aspirin BABY CHEW TAB] 81 mg PO QDAY #30 tab.chew 06/22/18 Unknown Rx Ondansetron [Zofran Odt] 4 mg PO Q8HR PRN #14 tab.rapdis 09/16/18 Unknown Rx traMADoL [Ultram 50 MG tab] 50 mg PO Q4HR PRN #14 tablet 09/16/18 Unknown Rx traMADoL [Ultram] 50 mg PO Q6HR PRN #10 tablet 10/19/18 Unknown Rx Azithromycin [Zithromax Z-RAMILA] 250 mg PO DAILY #6 tablet 11/26/18 Unknown Rx Benzonatate [Tessalon Perle] 100 mg PO Q8H PRN #20 capsule 11/26/18 Unknown Rx Ibuprofen [Motrin] 600 mg PO Q8H PRN #20 tablet 11/26/18 Unknown Rx Prednisone [predniSONE 10 mg 10 mg PO .TAPER #1 tab.ds.pk 11/26/18 Unknown Rx (6-Day Pack, 21 Tabs)] cephALEXin [Keflex] 500 mg PO TID 10 Days #30 capsule 01/17/19 Unknown Rx Acetaminophen [Acetaminophen TAB] 975 mg PO Q6HR PRN #24 tablet 04/20/19 Unknown Rx Fluticasone [Flonase] 1 spray NS QDAY #1 bottle 07/14/19 Unknown Rx Cyclobenzaprine HCl [Flexeril 5 MG 5 mg PO QHS PRN #12 tablet 12/16/19 Unknown Rx TAB] Naproxen 500 mg PO Q12H PRN #24 tablet 12/16/19 Unknown Rx cephALEXin [Keflex] 500 mg PO Q8HR #30 cap 12/16/19 Unknown Rx Ciprofloxacin HCl [Ciprofloxacin 500 mg PO BID 7 Days #14 tab 01/25/20 Unknown Rx TAB] Phenazopyridine [Pyridium] 100 mg PO TID PRN #20 tab 01/25/20 Unknown Rx cephALEXin [Keflex] 500 mg PO BID 10 Days #20 cap 01/25/20 Unknown Rx Benzonatate [Tessalon Perles] 100 mg PO Q8HR #30 capsule 07/23/20 Unknown Rx Cetirizine HCl [Zyrtec 10mg tab] 10 mg PO DAILY #30 tablet 07/23/20 Unknown Rx Ibuprofen [Motrin 600 MG tab] 600 mg PO Q8H PRN #30 tablet 07/23/20 Unknown Rx cephALEXin [Keflex] 500 mg PO Q8HR #30 cap 07/23/20 Unknown Rx predniSONE [Deltasone] 40 mg PO QDAY #10 tab 07/23/20 Unknown Rx HYDROcodone/APAP 5-325 [[place] 1 each PO Q6HR PRN #15 tablet 08/15/21 Unknown Rx 5/325] Tamsulosin [Flomax] 0.4 mg PO QDAY #14 cap 08/15/21 Unknown Rx cephALEXin [Keflex] 500 mg PO TID 7 Days #21 cap 08/15/21 Unknown Rx Allergies Allergy/AdvReac Type Severity Reaction Status Date / Time No Known Allergies Allergy Verified 03/21/20 18:41 ED Review of Systems ROS: Stated complaint: LOW BACK PAIN Other details as noted in HPI Comment: All other systems reviewed and negative Constitutional: denies: chills, fever, malaise Respiratory: denies: cough, shortness of breath Cardiovascular: denies: chest pain Musculoskeletal: back pain ED Past Medical Hx - Past Medical History Previous Medical History?: Yes Hx Hypertension: Yes (controlled) Additional medical history: prostate problems, self cath @ times - Surgical History Past Surgical History?: Yes Additional Surgical History: left knee fx - Social History Smoking Status: Never Smoker Substance Use Type: Alcohol - Medications Home Medications: Home Medications Medication Instructions Recorded Confirmed Last Taken Type Ascorbic Acid [Vitamin C] 250 mg PO QDAY 06/30/16 05/23/17 06/30/16 History Nitrofurantoin [place]/M-Cryst 100 mg PO Q12HR #14 capsule 05/24/17 Unknown Rx [Macrobid CAP] Albuterol Mdi (or & Nicu Only) 2 puff IH ONCE #1 inha 01/04/18 Unknown Rx [ProAir HFA Inhaler] Amoxicillin/Potassium Clav 1 each PO BID #14 tablet 01/04/18 Unknown Rx [Augmentin 875-125 Tablet] Prednisone [predniSONE 5 mg (6-Day 5 mg PO .TAPER #1 tab.ds.pk 01/04/18 Unknown Rx Pack, 21 Tabs)] Azithromycin [Zithromax Z-RAMILA] 250 mg PO DAILY #6 tablet 01/11/18 Unknown Rx Benzonatate [Tessalon Perles] 100 mg PO Q8HR PRN #30 capsule 02/25/18 Unknown Rx Fluticasone [Flonase] 1 spray NS QDAY #1 bottle 02/25/18 Unknown Rx Loratadine (Nf) [Claritin] 10 mg PO DAILY #30 tablet 02/25/18 Unknown Rx Aspirin [Aspirin BABY CHEW TAB] 81 mg PO QDAY #30 tab.chew 06/22/18 Unknown Rx Ondansetron [Zofran Odt] 4 mg PO Q8HR PRN #14 tab.rapdis 09/16/18 Unknown Rx traMADoL [Ultram 50 MG tab] 50 mg PO Q4HR PRN #14 tablet 09/16/18 Unknown Rx traMADoL [Ultram] 50 mg PO Q6HR PRN #10 tablet 10/19/18 Unknown Rx Azithromycin [Zithromax Z-RAMILA] 250 mg PO DAILY #6 tablet 11/26/18 Unknown Rx Benzonatate [Tessalon Perle] 100 mg PO Q8H PRN #20 capsule 11/26/18 Unknown Rx Ibuprofen [Motrin] 600 mg PO Q8H PRN #20 tablet 11/26/18 Unknown Rx Prednisone [predniSONE 10 mg 10 mg PO .TAPER #1 tab.ds.pk 11/26/18 Unknown Rx (6-Day Pack, 21 Tabs)] cephALEXin [Keflex] 500 mg PO TID 10 Days #30 capsule 01/17/19 Unknown Rx Acetaminophen [Acetaminophen TAB] 975 mg PO Q6HR PRN #24 tablet 04/20/19 Unknown Rx Fluticasone [Flonase] 1 spray NS QDAY #1 bottle 07/14/19 Unknown Rx Cyclobenzaprine HCl [Flexeril 5 MG 5 mg PO QHS PRN #12 tablet 12/16/19 Unknown Rx TAB] Naproxen 500 mg PO Q12H PRN #24 tablet 12/16/19 Unknown Rx cephALEXin [Keflex] 500 mg PO Q8HR #30 cap 12/16/19 Unknown Rx Ciprofloxacin HCl [Ciprofloxacin 500 mg PO BID 7 Days #14 tab 01/25/20 Unknown Rx TAB] Phenazopyridine [Pyridium] 100 mg PO TID PRN #20 tab 01/25/20 Unknown Rx cephALEXin [Keflex] 500 mg PO BID 10 Days #20 cap 01/25/20 Unknown Rx Benzonatate [Tessalon Perles] 100 mg PO Q8HR #30 capsule 07/23/20 Unknown Rx Cetirizine HCl [Zyrtec 10mg tab] 10 mg PO DAILY #30 tablet 07/23/20 Unknown Rx Ibuprofen [Motrin 600 MG tab] 600 mg PO Q8H PRN #30 tablet 07/23/20 Unknown Rx cephALEXin [Keflex] 500 mg PO Q8HR #30 cap 07/23/20 Unknown Rx predniSONE [Deltasone] 40 mg PO QDAY #10 tab 07/23/20 Unknown Rx HYDROcodone/APAP 5-325 [[place] 1 each PO Q6HR PRN #15 tablet 08/15/21 Unknown Rx 5/325] Tamsulosin [Flomax] 0.4 mg PO QDAY #14 cap 08/15/21 Unknown Rx cephALEXin [Keflex] 500 mg PO TID 7 Days #21 cap 08/15/21 Unknown Rx ED Physical Exam - General Limitations: No Limitations General appearance: alert, in no apparent distress, other (Appears well) - Head Head exam: Present: atraumatic, normocephalic - Eye Eye exam: Present: normal appearance - ENT ENT exam: Present: mucous membranes moist - Neck Neck exam: Present: normal inspection, full ROM - Respiratory Respiratory exam: Present: normal lung sounds bilaterally. Absent: respiratory distress, wheezes, rales, rhonchi - Cardiovascular Cardiovascular Exam: Present: regular rate, normal rhythm, normal heart sounds. Absent: systolic murmur, diastolic murmur, rubs, gallop - GI/Abdominal GI/Abdominal exam: Present: soft, normal bowel sounds. Absent: distended, tenderness, guarding, rebound - Rectal Rectal exam: Present: deferred - Extremities Exam Extremities exam: Present: normal inspection - Back Exam Back exam: Present: normal inspection, full ROM, muscle spasm. Absent: tend erness, CVA tenderness (R), CVA tenderness (L), paraspinal tenderness, vertebral tenderness, rash noted - Neurological Exam Neurological exam: Present: alert, oriented X3, normal gait - Psychiatric Psychiatric exam: Present: normal affect, normal mood - Skin Skin exam: Present: warm, dry, intact, normal color. Absent: rash ED Course Vital Signs 08/15/21 12:27 Temperature 98.4 F Pulse Rate 85 Respiratory 16 Rate Blood Pressure 144/74 [Left] O2 Sat by Pulse 99 Oximetry ED Medical Decision Making - Radiology Data Radiology results: report reviewed Patient Name: MICHAEL ADAMS Gender: Male Date of : 1945 Referring Provider: DELMI CHILDERS Organization: [facility] Accession Number: [id number] Requested Date: August 15, 2021 12:55 Report Status: Final Requested Procedure: 1 Procedure Description: CT abdomen pelvis wo con Modality: CT Findings Reporting MD: Owen Black Dictation Time: August 15, 2021 13:21 Telephonic Case Manager: Not available Emergency Medical Tech Date: CT ABDOMEN AND PELVIS WITHOUT CONTRAST INDICATION / CLINICAL INFORMATION: left flank pain. TECHNIQUE: Axial CT images were obtained through the abdomen and pelvis without IV contrast. All CT scans at this location are performed using CT dose reduction for ALARA by means of automated exposure control. COMPARISON: 05/23/2017 FINDINGS: LOWER CHEST: No significant abnormality. AORTA / ARTERIES: No significant abnormality. IVC / VEINS: No significant abnormality. LYMPH NODES: No significant adenopathy. COLON: Diverticulosis without acute inflammation. APPENDIX: No significant abnormality. STOMACH / SMALL BOWEL: No significant abnormality. PERITONEUM: No free fluid. No free air. No fluid collection. LIVER: No significant abnormality. GALLBLADDER: Cholelithiasis BILE DUCTS: No significant abnormality. PANCREAS: No significant abnormality. SPLEEN: No significant abnormality. ADRENALS: No significant abnormality. RIGHT KIDNEY / URETER: No significant abnormality. LEFT KIDNEY / URETER: There is a punctate 2 mm stone within the kidney. There is mild hydronephrosis and perinephric fat stranding. This is secondary to a 1.2 cm stone within the ureteropelvic junction. URINARY BLADDER: There are 2 stones within the dependent portion of the urinary bladder measuring 1.9 and 1.6 cm REPRODUCTIVE ORGANS: Prostate is enlarged. SKELETAL SYSTEM: Scattered degeneration [facility] [address] [place] [address] P [phone] F [phone] [facility] - Report exported on Sat, Aug 15, 2021 13:33:42 -[id number] - Page 2 of 2 ADDITIONAL FINDINGS: None. IMPRESSION: 1. Obstructive nephropathy of the left kidney secondary to a 1.2 cm stone at the left ureteropelvic junction. 2. There are 2 bladder stones as detailed above. 3. Prostatic enlargement 4. Other findings as above - Medical Decision Making Left renal colic due to 2 mm stone at UVJ and 1.2 cm stone at the UPJ. Patient appears well. He only has mild pain. No signs of SIRS. He is nontoxic. Mild hydronephrosis with perinephric stranding. I will prophylactically treat with antibiotic Keflex. Patient also prescribed Flomax [place] for pain. [facility] He also is welcome to follow-up with urologist here at [facility] to whom he was referred. He understands to come back for fever severe pain vomiting. Critical care attestation.: If time is entered above; I have spent that time in minutes in the direct care of this critically ill patient, excluding procedure time. ED Disposition Clinical Impression: Renal colic on left side, Kidney stones Disposition: HOME / SELF CARE / HOMELESS Is pt being admited?: No Does the pt Need Aspirin: No Condition: Stable Instructions: Kidney Stones, [id number] Prescriptions: Tamsulosin [Flomax] 0.4 mg PO QDAY #14 cap cephALEXin [Keflex] 500 mg PO TID 7 Days #21 cap HYDROcodone/APAP 5-325 [[place] 5/325] 1 each PO Q6HR PRN #15 tablet PRN Reason: Pain Referrals: SCOTT SLOAN MD [Staff Physician] - 3-5 Days
--- NOTE | 2021-08-15 14:26 | Cat Scan Report ---
CT ABDOMEN AND PELVIS WITHOUT CONTRAST INDICATION / CLINICAL INFORMATION: left flank pain. TECHNIQUE: Axial CT images were obtained through the abdomen and pelvis without IV contrast. All CT scans at this location are performed using CT dose reduction for ALARA by means of automated exposure control. COMPARISON: 05/23/2017 FINDINGS: LOWER CHEST: No significant abnormality. AORTA / ARTERIES: No significant abnormality. IVC / VEINS: No significant abnormality. LYMPH NODES: No significant adenopathy. COLON: Diverticulosis without acute inflammation. APPENDIX: No significant abnormality. STOMACH / SMALL BOWEL: No significant abnormality. PERITONEUM: No free fluid. No free air. No fluid collection. LIVER: No significant abnormality. GALLBLADDER: Cholelithiasis BILE DUCTS: No significant abnormality. PANCREAS: No significant abnormality. SPLEEN: No significant abnormality. ADRENALS: No significant abnormality. RIGHT KIDNEY / URETER: No significant abnormality. LEFT KIDNEY / URETER: There is a punctate 2 mm stone within the kidney. There is mild hydronephrosis and perinephric fat stranding. This is secondary to a 1.2 cm stone within the ureteropelvic junction. URINARY BLADDER: There are 2 stones within the dependent portion of the urinary bladder measuring 1.9 and 1.6 cm REPRODUCTIVE ORGANS: Prostate is enlarged. SKELETAL SYSTEM: Scattered degeneration ADDITIONAL FINDINGS: None. IMPRESSION: 1. Obstructive nephropathy of the left kidney secondary to a 1.2 cm stone at the left ureteropelvic j unction. 2. There are 2 bladder stones as detailed above. 3. Prostatic enlargement 4. Other findings as above Signer Name: Owen Black DO Signed: 08/15/2021 2:21 PM Workstation Name: [id number]
== END 2021-08-15 14:50 | disposition home or self-care (01) ==
LOC: ED 12:12
DX: N23 Unspecified renal colic (principal); N20.0 Calculus of kidney; I10 Essential (primary) hypertension; F17.200 Nicotine dependence, unspecified, uncomplicated
CPT/HCPCS: 74176; 99283

== ENCOUNTER 2021-08-16 21:24 | Emergency (ER) | payer MEDICARE, OTHER ==
[2021-08-16 22:36] VITALS: BP 146/77
[2021-08-16] MEDS ORDERED: ONDANSETRON 4 MG ODT TAB PO ONE (22:58)
[2021-08-16] MEDS ORDERED: oxyCODONE /ACETAMINOPHEN 5-325MG TAB PO ONE (22:58)
--- NOTE | 2021-08-16 23:23 | Emergency Department Report ---
ED Abdominal Pain HPI - General Chief Complaint: Abdominal Pain Stated Complaint: LOWER BACK PAIN Source: patient Mode of arrival: Ambulatory Limitations: No Limitations - History of Present Illness Initial Comments: Patient is a 75-year-old male with a history of hypertension and recurrent kidney stones who presents to the ED with complaint of persistent left flank pain for the last 3 days. Patient was initially evaluated in the ED here for same complaints of left flank pain and was diagnosed with left-sided kidney stones and was discharged home on hydrocodone 5 mg - 325 mg, Flomax 0.4 mg and Keflex 500 mg 3 times daily. Patient however states that he did not feel the pain medication prescription but only fill the Flomax. Patient states that he has not taken any medication for pain since he left the ED 24 hours ago. Patient however states that the pain has been persistent for the last 24 hours. Patient denies fever, chills, dysuria, hematuria, nausea and vomiting, diarrhea, chest pain or shortness of breath, dizziness, syncope or back pain. MD Complaint: abdominal pain (Left flank pain), flank pain (Left flank pain), other (Recently diagnosed with kidney stones on the left) -: Sudden, days(s) (3) Location: L flank Radiation: L flank Migration to: no migration Severity scale (0 -10): 6 Quality: aching, sharp Consistency: constant Worsens With: nothing Context: other (Diagnosed with kidney stones 24 hours ago) Associated Symptoms: denies: nausea, vomiting, diarrhea, fever, chills, constipation, dysuria, hematochezia, melena - Related Data Home Medications Medication Instructions Recorded Confirmed Last Taken Ascorbic Acid [Vitamin C] 250 mg PO QDAY 06/30/16 05/23/17 06/30/16 Previous Rx's Medication Instructions Recorded Last Taken Type Nitrofurantoin [place]/M-Cryst 100 mg PO Q12HR #14 capsule 05/24/17 Unknown Rx [Macrobid CAP] Albuterol Mdi (or & Nicu Only) 2 puff IH ONCE #1 inha 01/04/18 Unknown Rx [ProAir HFA Inhaler] Amoxicillin/Potassium Clav 1 each PO BID #14 tablet 01/04/18 Unknown Rx [Augmentin 875-125 Tablet] Prednisone [predniSONE 5 mg (6-Day 5 mg PO .TAPER #1 tab.ds.pk 01/04/18 Unknown Rx Pack, 21 Tabs)] Azithromycin [Zithromax Z-RAMILA] 250 mg PO DAILY #6 tablet 01/11/18 Unknown Rx Benzonatate [Tessalon Perles] 100 mg PO Q8HR PRN #30 capsule 02/25/18 Unknown Rx Fluticasone [Flonase] 1 spray NS QDAY #1 bottle 02/25/18 Unknown Rx Loratadine (Nf) [Claritin] 10 mg PO DAILY #30 tablet 02/25/18 Unknown Rx Aspirin [Aspirin BABY CHEW TAB] 81 mg PO QDAY #30 tab.chew 06/22/18 Unknown Rx Ondansetron [Zofran Odt] 4 mg PO Q8HR PRN #14 tab.rapdis 09/16/18 Unknown Rx traMADoL [Ultram 50 MG tab] 50 mg PO Q4HR PRN #14 tablet 09/16/18 Unknown Rx traMADoL [Ultram] 50 mg PO Q6HR PRN #10 tablet 10/19/18 Unknown Rx Azithromycin [Zithromax Z-RAMILA] 250 mg PO DAILY #6 tablet 11/26/18 Unknown Rx Benzonatate [Tessalon Perle] 100 mg PO Q8H PRN #20 capsule 11/26/18 Unknown Rx Ibuprofen [Motrin] 600 mg PO Q8H PRN #20 tablet 11/26/18 Unknown Rx Prednisone [predniSONE 10 mg 10 mg PO .TAPER #1 tab.ds.pk 11/26/18 Unknown Rx (6-Day Pack, 21 Tabs)] cephALEXin [Keflex] 500 mg PO TID 10 Days #30 capsule 01/17/19 Unknown Rx Acetaminophen [Acetaminophen TAB] 975 mg PO Q6HR PRN #24 tablet 04/20/19 Unknown Rx Fluticasone [Flonase] 1 spray NS QDAY #1 bottle 07/14/19 Unknown Rx Cyclobenzaprine HCl [Flexeril 5 MG 5 mg PO QHS PRN #12 tablet 12/16/19 Unknown Rx TAB] Naproxen 500 mg PO Q12H PRN #24 tablet 12/16/19 Unknown Rx cephALEXin [Keflex] 500 mg PO Q8HR #30 cap 12/16/19 Unknown Rx Ciprofloxacin HCl [Ciprofloxacin 500 mg PO BID 7 Days #14 tab 01/25/20 Unknown Rx TAB] Phenazopyridine [Pyridium] 100 mg PO TID PRN #20 tab 01/25/20 Unknown Rx cephALEXin [Keflex] 500 mg PO BID 10 Days #20 cap 01/25/20 Unknown Rx Benzonatate [Tessalon Perles] 100 mg PO Q8HR #30 capsule 07/23/20 Unknown Rx Cetirizine HCl [Zyrtec 10mg tab] 10 mg PO DAILY #30 tablet 07/23/20 Unknown Rx Ibuprofen [Motrin 600 MG tab] 600 mg PO Q8H PRN #30 tablet 07/23/20 Unknown Rx cephALEXin [Keflex] 500 mg PO Q8HR #30 cap 07/23/20 Unknown Rx predniSONE [Deltasone] 40 mg PO QDAY #10 tab 07/23/20 Unknown Rx HYDROcodone/APAP 5-325 [[place] 1 each PO Q6HR PRN #15 tablet 08/15/21 Unknown Rx 5/325] Tamsulosin [Flomax] 0.4 mg PO QDAY #14 cap 08/15/21 Unknown Rx cephALEXin [Keflex] 500 mg PO TID 7 Days #21 cap 08/15/21 Unknown Rx Allergies Allergy/AdvReac Type Severity Reaction Status Date / Time No Known Allergies Allergy Verified 08/16/21 22:36 ED Review of Systems ROS: Stated complaint: LOWER BACK PAIN Other details as noted in HPI Constitutional: denies: chills, fever Eyes: denies: eye pain, eye discharge, vision change ENT: denies: ear pain, throat pain Respiratory: denies: cough, shortness of breath, wheezing Cardiovascular: denies: chest pain, palpitations Endocrine: no symptoms reported Gastrointestinal: abdominal pain (Left flank pain). denies: nausea, vomiting, diarrhea Genitourinary: denies: urgency, dysuria Musculoskeletal: denies: back pain, joint swelling, arthralgia Skin: denies: rash, lesions Neurological: denies: headache, weakness, paresthesias Psychiatric: denies: anxiety, depression Hematological/Lymphatic: denies: easy bleeding, easy bruising ED Past Medical Hx - Past Medical History Hx Hypertension: Yes (controlled) Hx Kidney Stones: Yes Additional medical history: prostate problems, self cath @ times - Surgical History Additional Surgical History: left knee fx - Social History Smoking Status: Never Smoker Substance Use Type: None - Medications Home Medications: Home Medications Medication Instructions Recorded Confirmed Last Taken Type Ascorbic Acid [Vitamin C] 250 mg PO QDAY 06/30/16 05/23/17 06/30/16 History Nitrofurantoin [place]/M-Cryst 100 mg PO Q12HR #14 capsule 05/24/17 Unknown Rx [Macrobid CAP] Albuterol Mdi (or & Nicu Only) 2 puff IH ONCE #1 inha 01/04/18 Unknown Rx [ProAir HFA Inhaler] Amoxicillin/Potassium Clav 1 each PO BID #14 tablet 01/04/18 Unknown Rx [Augmentin 875-125 Tablet] Prednisone [predniSONE 5 mg (6-Day 5 mg PO .TAPER #1 tab.ds.pk 01/04/18 Unknown Rx Pack, 21 Tabs)] Azithromycin [Zithromax Z-RAMILA] 250 mg PO DAILY #6 tablet 01/11/18 Unknown Rx Benzonatate [Tessalon Perles] 100 mg PO Q8HR PRN #30 capsule 02/25/18 Unknown Rx Fluticasone [Flonase] 1 spray NS QDAY #1 bottle 02/25/18 Unknown Rx Loratadine (Nf) [Claritin] 10 mg PO DAILY #30 tablet 02/25/18 Unknown Rx Aspirin [Aspirin BABY CHEW TAB] 81 mg PO QDAY #30 tab.chew 06/22/18 Unknown Rx Ondansetron [Zofran Odt] 4 mg PO Q8HR PRN #14 tab.rapdis 09/16/18 Unknown Rx traMADoL [Ultram 50 MG tab] 50 mg PO Q4HR PRN #14 tablet 09/16/18 Unknown Rx traMADoL [Ultram] 50 mg PO Q6HR PRN #10 tablet 10/19/18 Unknown Rx Azithromycin [Zithromax Z-RAMILA] 250 mg PO DAILY #6 tablet 11/26/18 Unknown Rx Benzonatate [Tessalon Perle] 100 mg PO Q8H PRN #20 capsule 11/26/18 Unknown Rx Ibuprofen [Motrin] 600 mg PO Q8H PRN #20 tablet 11/26/18 Unknown Rx Prednisone [predniSONE 10 mg 10 mg PO .TAPER #1 tab.ds.pk 11/26/18 Unknown Rx (6-Day Pack, 21 Tabs)] cephALEXin [Keflex] 500 mg PO TID 10 Days #30 capsule 01/17/19 Unknown Rx Acetaminophen [Acetaminophen TAB] 975 mg PO Q6HR PRN #24 tablet 04/20/19 Unknown Rx Fluticasone [Flonase] 1 spray NS QDAY #1 bottle 07/14/19 Unknown Rx Cyclobenzaprine HCl [Flexeril 5 MG 5 mg PO QHS PRN #12 tablet 12/16/19 Unknown Rx TAB] Naproxen 500 mg PO Q12H PRN #24 tablet 12/16/19 Unknown Rx cephALEXin [Keflex] 500 mg PO Q8HR #30 cap 12/16/19 Unknown Rx Ciprofloxacin HCl [Ciprofloxacin 500 mg PO BID 7 Days #14 tab 01/25/20 Unknown Rx TAB] Phenazopyridine [Pyridium] 100 mg PO TID PRN #20 tab 01/25/20 Unknown Rx cephALEXin [Keflex] 500 mg PO BID 10 Days #20 cap 01/25/20 Unknown Rx Benzonatate [Tessalon Perles] 100 mg PO Q8HR #30 capsule 07/23/20 Unknown Rx Cetirizine HCl [Zyrtec 10mg tab] 10 mg PO DAILY #30 tablet 07/23/20 Unknown Rx Ibuprofen [Motrin 600 MG tab] 600 mg PO Q8H PRN #30 tablet 07/23/20 Unknown Rx cephALEXin [Keflex] 500 mg PO Q8HR #30 cap 07/23/20 Unknown Rx predniSONE [Deltasone] 40 mg PO QDAY #10 tab 07/23/20 Unknown Rx HYDROcodone/APAP 5-325 [[place] 1 each PO Q6HR PRN #15 tablet 08/15/21 Unknown Rx 5/325] Tamsulosin [Flomax] 0.4 mg PO QDAY #14 cap 08/15/21 Unknown Rx cephALEXin [Keflex] 500 mg PO TID 7 Days #21 cap 08/15/21 Unknown Rx ED Physical Exam - General Limitations: No Limitations General appearance: alert, in no apparent distress - Head Head exam: Present: atraumatic, normocephalic, normal inspection - Eye Eye exam: Present: normal appearance, PERRL, EOMI Pupils: Present: normal accommodation - ENT ENT exam: Present: normal exam, normal orophraynx, mucous membranes moist, TM's normal bilaterally, normal external ear exam - Neck Neck exam: Present: normal inspection, full ROM - Respiratory Respiratory exam: Present: normal lung sounds bilaterally. Absent: respiratory distress, wheezes, rales, rhonchi, chest wall tenderness, accessory muscle use - Cardiovascular Cardiovascular Exam: Present: regular rate, normal rhythm, normal heart sounds. Absent: systolic murmur, diastolic murmur, rubs, gallop - GI/Abdominal GI/Abdominal exam: Present: soft, normal bowel sounds. Absent: distended, tenderness, guarding, rebound, hyperactive bowel sounds, hypoactive bowel sounds, organomegaly - Extremities Exam Extremities exam: Present: normal inspection, full ROM, normal capillary refill - Back Exam Back exam: Present: normal inspection, full ROM. Absent: tenderness, CVA tenderness (R), CVA tenderness (L), muscle spasm, paraspinal tenderness, vertebral tenderness - Neurological Exam Neurological exam: Present: alert, oriented X3, CN II-XII intact, normal gait, reflexes normal - Psychiatric Psychiatric exam: Present: normal affect, normal mood - Skin Skin exam: Present: warm, dry, intact, normal color. Absent: rash ED Course Vital Signs 08/16/21 22:29 Temperature 99.2 F Pulse Rate 87 Respiratory 18 Rate Blood Pressure 146/77 O2 Sat by Pulse 98 Oximetry ED Medical Decision Making - Medical Decision Making This is a 75-year-old male with a history of hypertension and recurrent kidney stones who presents to the ED with complaint of persistent left flank pain for the last 3 days. Patient was initially evaluated in the ED here for same complaints of left flank pain and was diagnosed with left-sided kidney stones and was discharged home on hydrocodone 5 mg - 325 mg, Flomax 0.4 mg and Keflex 500 mg 3 times daily. Patient however states that he did not feel the pain medication prescription but only fill the Flomax. Patient states that he has not taken any medication for pain since he left the ED 24 hours ago. Patient however states that the pain has been persistent for the last 24 hours. In the ED, patient is alert and oriented x3 and is not in any distress. Patient is hemodynamically stable. Patient was treated for pain in the ED and was discharged home and advised to fill his previously prescribed pain medications, and to follow-up with the urologist Dr. Saini in 3 to 5 days for reevaluation. Patient was also advised to contact Dr. Saini's office first thing in the morning on Tuesday, August 17, 2021 to schedule a follow-up appointment. Patient was otherwise advised return to the ED immediately if symptoms get worse. - Differential Diagnosis Kidney stones; renal colic; Critical care attestation.: If time is entered above; I have spent that time in minutes in the direct care of this critically ill patient, excluding procedure time. ED Disposition Clinical Impression: Kidney stone on left side, Renal colic on left side, Acute left flank pain Disposition: HOME / SELF CARE / HOMELESS Is pt being admited?: No Does the pt Need Aspirin: No Condition: Stable Instructions: Kidney Stones, [id number], Renal Colic, [id number], Flank Pain, Adult, [id number] Additional Instructions: Take your previously prescribed medications for pain, drink plenty of fluids, take the antibiotics as well. Return to the ED immediately if symptoms get worse. Otherwise follow-up with the urologist in 3 to 5 days for reevaluation. Contact his office first thing on Tuesday morning August 17, 2021 to schedule a follow-up appointment. Referrals: JENNY SAINI MD [Staff Physician] - 3-5 Days Time of Disposition: 23:07 Print Language: TOGOLESE
== END 2021-08-17 00:07 | disposition home or self-care (01) ==
LOC: ED 21:24
DX: N20.0 Calculus of kidney (principal); R10.9 Unspecified abdominal pain; I10 Essential (primary) hypertension; Z98.890 Other specified postprocedural states
CPT/HCPCS: 99282; Q0162

== ENCOUNTER 2022-03-16 15:13 | Emergency (ER) | payer MEDICARE | END 2022-03-17 07:25 | disposition left against medical advice (07) | LOC: ED 15:13 | DX: M79.672 Pain in left foot (principal); Z53.21 Procedure and treatment not carried out due to patient leaving prior to being seen by health care provider ==

== ENCOUNTER 2022-04-17 15:59 | Emergency (ER) | payer MEDICARE ==
[2022-04-17 16:28] VITALS: BP 137/67
--- NOTE | 2022-04-17 21:35 | Emergency Department Report ---
ED Extremity Problem HPI - General Chief complaint: Wound/Laceration Stated complaint: LT FOOT SORE Source: patient Mode of arrival: Ambulatory Limitations: No Limitations - History of Present Illness Initial comments: Patient is a 76-year-old male with a history of hypertension and kidney stones who presents to the ED with complaint of acute onset persistent painful left plantar foot due to a calcaneal spur. Patient states that the pain is especially worse with ambulation or weightbearing on the left foot. Patient states that the symptoms have worsened in the last 5 days. Patient denies traumatic injury, headache, dizziness, syncope, chest pain or shortness of breath, traumatic injury, low back pain, fever and chills. MD Complaint: extremity pain (Painful left plantar foot calis) -: Gradual, week(s) (2) Location: left, lower extremity (left plantar foot pain), other (plantar foot) History of Same: No -: Yes arthralgia Radiation: none Severity scale (0 -10): 4 Quality: stabbing, sharp Consistency: constant Improves with: nothing Worsens with: weight bearing, walking, exertion, palpation Associated Symptoms: denies other symptoms, arthralgias (Left plantar foot pain). denies: chest pain, shortness of breath, fever, myalgias - Related Data Home Medications Medication Instructions Recorded Confirmed Last Taken Ascorbic Acid [Vitamin C] 250 mg PO QDAY 06/30/16 05/23/17 06/30/16 Previous Rx's Medication Instructions Recorded Last Taken Type Nitrofurantoin [place]/M-Cryst 100 mg PO Q12HR #14 capsule 05/24/17 Unknown Rx [Macrobid CAP] Albuterol Mdi (or & Nicu Only) 2 puff IH ONCE #1 inha 01/04/18 Unknown Rx [ProAir HFA Inhaler] Amoxicillin/Potassium Clav 1 each PO BID #14 tablet 01/04/18 Unknown Rx [Augmentin 875-125 Tablet] Prednisone [predniSONE 5 mg (6-Day 5 mg PO .TAPER #1 tab.ds.pk 01/04/18 Unknown Rx Pack, 21 Tabs)] Azithromycin [Zithromax Z-RAMILA] 250 mg PO DAILY #6 tablet 01/11/18 Unknown Rx Benzonatate [Tessalon Perles] 100 mg PO Q8HR PRN #30 capsule 02/25/18 Unknown Rx Fluticasone [Flonase] 1 spray NS QDAY #1 bottle 02/25/18 Unknown Rx Loratadine (Nf) [Claritin] 10 mg PO DAILY #30 tablet 02/25/18 Unknown Rx Aspirin [Aspirin BABY CHEW TAB] 81 mg PO QDAY #30 tab.chew 06/22/18 Unknown Rx Ondansetron [Zofran Odt] 4 mg PO Q8HR PRN #14 tab.rapdis 09/16/18 Unknown Rx traMADoL [Ultram 50 MG tab] 50 mg PO Q4HR PRN #14 tablet 09/16/18 Unknown Rx traMADoL [Ultram] 50 mg PO Q6HR PRN #10 tablet 10/19/18 Unknown Rx Azithromycin [Zithromax Z-RAMILA] 250 mg PO DAILY #6 tablet 11/26/18 Unknown Rx Benzonatate [Tessalon Perle] 100 mg PO Q8H PRN #20 capsule 11/26/18 Unknown Rx Ibuprofen [Motrin] 600 mg PO Q8H PRN #20 tablet 11/26/18 Unknown Rx Prednisone [predniSONE 10 mg 10 mg PO .TAPER #1 tab.ds.pk 11/26/18 Unknown Rx (6-Day Pack, 21 Tabs)] cephALEXin [Keflex] 500 mg PO TID 10 Days #30 capsule 01/17/19 Unknown Rx Acetaminophen [Acetaminophen TAB] 975 mg PO Q6HR PRN #24 tablet 04/20/19 Unknown Rx Fluticasone [Flonase] 1 spray NS QDAY #1 bottle 07/14/19 Unknown Rx Cyclobenzaprine HCl [Flexeril 5 MG 5 mg PO QHS PRN #12 tablet 12/16/19 Unknown Rx TAB] Naproxen 500 mg PO Q12H PRN #24 tablet 12/16/19 Unknown Rx cephALEXin [Keflex] 500 mg PO Q8HR #30 cap 12/16/19 Unknown Rx Ciprofloxacin HCl [Ciprofloxacin 500 mg PO BID 7 Days #14 tab 01/25/20 Unknown Rx TAB] Phenazopyridine [Pyridium] 100 mg PO TID PRN #20 tab 01/25/20 Unknown Rx cephALEXin [Keflex] 500 mg PO BID 10 Days #20 cap 01/25/20 Unknown Rx Benzonatate [Tessalon Perles] 100 mg PO Q8HR #30 capsule 07/23/20 Unknown Rx Cetirizine HCl [Zyrtec 10mg tab] 10 mg PO DAILY #30 tablet 07/23/20 Unknown Rx Ibuprofen [Motrin 600 MG tab] 600 mg PO Q8H PRN #30 tablet 07/23/20 Unknown Rx cephALEXin [Keflex] 500 mg PO Q8HR #30 cap 07/23/20 Unknown Rx predniSONE [Deltasone] 40 mg PO QDAY #10 tab 07/23/20 Unknown Rx HYDROcodone/APAP 5-325 [[place] 1 each PO Q6HR PRN #15 tablet 08/15/21 Unknown Rx 5/325] Tamsulosin [Flomax] 0.4 mg PO QDAY #14 cap 08/15/21 Unknown Rx cephALEXin [Keflex] 500 mg PO TID 7 Days #21 cap 08/15/21 Unknown Rx Ciprofloxacin HCl 500 mg PO BID 5 Days #10 tab 12/23/21 Unknown Rx Allergies Allergy/AdvReac Type Severity Reaction Status Date / Time No Known Allergies Allergy Verified 02/09/22 05:17 ED Review of Systems ROS: Stated complaint: LT FOOT SORE Other details as noted in HPI Constitutional: denies: chills, fever Eyes: denies: eye pain, eye discharge, vision change ENT: denies: ear pain, throat pain Respiratory: denies: cough, shortness of breath, wheezing Cardiovascular: denies: chest pain, palpitations Endocrine: no symptoms reported Gastrointestinal: denies: abdominal pain, nausea, diarrhea Genitourinary: denies: urgency, dysuria Musculoskeletal: arthralgia (Left plantar foot pain due to a heel spur). denies: back pain, joint swelling Skin: denies: rash, lesions Neurological: denies: headache, weakness, paresthesias Psychiatric: denies: anxiety, depression Hematological/Lymphatic: denies: easy bleeding, easy bruising ED Past Medical Hx - Past Medical History Previous Medical History?: Yes Hx Hypertension: Yes (controlled) Hx Kidney Stones: Yes Additional medical history: prostate issues, self caths, left foot ulcer - Surgical History Past Surgical History?: Yes Additional Surgical History: left knee fx - Social History Smoking Status: Never Smoker Substance Use Type: None - Medications Home Medications: Home Medications Medication Instructions Recorded Confirmed Last Taken Type Ascorbic Acid [Vitamin C] 250 mg PO QDAY 08/17/16 07/10/17 08/17/16 History Nitrofurantoin [place]/M-Cryst 100 mg PO Q12HR #14 capsule 05/24/17 Unknown Rx [Macrobid CAP] Albuterol Mdi (or & Nicu Only) 2 puff IH ONCE #1 inha 01/04/18 Unknown Rx [ProAir HFA Inhaler] Amoxicillin/Potassium Clav 1 each PO BID #14 tablet 01/04/18 Unknown Rx [Augmentin 875-125 Tablet] Prednisone [predniSONE 5 mg (6-Day 5 mg PO .TAPER #1 tab.ds.pk 01/04/18 Unknown Rx Pack, 21 Tabs)] Azithromycin [Zithromax Z-RAMILA] 250 mg PO DAILY #6 tablet 01/11/18 Unknown Rx Benzonatate [Tessalon Perles] 100 mg PO Q8HR PRN #30 capsule 02/25/18 Unknown Rx Fluticasone [Flonase] 1 spray NS QDAY #1 bottle 02/25/18 Unknown Rx Loratadine (Nf) [Claritin] 10 mg PO DAILY #30 tablet 02/25/18 Unknown Rx Aspirin [Aspirin BABY CHEW TAB] 81 mg PO QDAY #30 tab.chew 06/22/18 Unknown Rx Ondansetron [Zofran Odt] 4 mg PO Q8HR PRN #14 tab.rapdis 09/16/18 Unknown Rx traMADoL [Ultram 50 MG tab] 50 mg PO Q4HR PRN #14 tablet 09/16/18 Unknown Rx traMADoL [Ultram] 50 mg PO Q6HR PRN #10 tablet 10/19/18 Unknown Rx Azithromycin [Zithromax Z-RAMILA] 250 mg PO DAILY #6 tablet 11/26/18 Unknown Rx Benzonatate [Tessalon Perle] 100 mg PO Q8H PRN #20 capsule 11/26/18 Unknown Rx Ibuprofen [Motrin] 600 mg PO Q8H PRN #20 tablet 11/26/18 Unknown Rx Prednisone [predniSONE 10 mg 10 mg PO .TAPER #1 tab.ds.pk 11/26/18 Unknown Rx (6-Day Pack, 21 Tabs)] cephALEXin [Keflex] 500 mg PO TID 10 Days #30 capsule 01/17/19 Unknown Rx Acetaminophen [Acetaminophen TAB] 975 mg PO Q6HR PRN #24 tablet 04/20/19 Unknown Rx Fluticasone [Flonase] 1 spray NS QDAY #1 bottle 07/14/19 Unknown Rx Cyclobenzaprine HCl [Flexeril 5 MG 5 mg PO QHS PRN #12 tablet 12/16/19 Unknown Rx TAB] Naproxen 500 mg PO Q12H PRN #24 tablet 12/16/19 Unknown Rx cephALEXin [Keflex] 500 mg PO Q8HR #30 cap 12/16/19 Unknown Rx Ciprofloxacin HCl [Ciprofloxacin 500 mg PO BID 7 Days #14 tab 01/25/20 Unknown Rx TAB] Phenazopyridine [Pyridium] 100 mg PO TID PRN #20 tab 01/25/20 Unknown Rx cephALEXin [Keflex] 500 mg PO BID 10 Days #20 cap 01/25/20 Unknown Rx Benzonatate [Tessalon Perles] 100 mg PO Q8HR #30 capsule 07/23/20 Unknown Rx Cetirizine HCl [Zyrtec 10mg tab] 10 mg PO DAILY #30 tablet 07/23/20 Unknown Rx Ibuprofen [Motrin 600 MG tab] 600 mg PO Q8H PRN #30 tablet 07/23/20 Unknown Rx cephALEXin [Keflex] 500 mg PO Q8HR #30 cap 07/23/20 Unknown Rx predniSONE [Deltasone] 40 mg PO QDAY #10 tab 07/23/20 Unknown Rx HYDROcodone/APAP 5-325 [[place] 1 each PO Q6HR PRN #15 tablet 08/15/21 Unknown Rx 5/325] Tamsulosin [Flomax] 0.4 mg PO QDAY #14 cap 08/15/21 Unknown Rx cephALEXin [Keflex] 500 mg PO TID 7 Days #21 cap 08/15/21 Unknown Rx Ciprofloxacin HCl 500 mg PO BID 5 Days #10 tab 12/23/21 Unknown Rx ED Physical Exam - General Limitations: No Limitations General appearance: alert, in no apparent distress - Head Head exam: Present: atraumatic, normocephalic, normal inspection - Eye Eye exam: Present: normal appearance, PERRL, EOMI Pupils: Present: normal accommodation - ENT ENT exam: Present: normal exam, normal orophraynx, mucous membranes moist, TM's normal bilaterally, normal external ear exam - Neck Neck exam: Present: normal inspection, full ROM - Respiratory Respiratory exam: Present: normal lung sounds bilaterally. Absent: respiratory distress, wheezes, rales, rhonchi, chest wall tenderness, accessory muscle use, decreased breath sounds - Cardiovascular Cardiovascular Exam: Present: regular rate, normal rhythm, normal heart sounds. Absent: systolic murmur, diastolic murmur, rubs, gallop - GI/Abdominal GI/Abdominal exam: Present: soft, normal bowel sounds. Absent: distended, tenderness, guarding, hyperactive bowel sounds, hypoactive bowel sounds, organomegaly - Extremities Exam Extremities exam: Present: normal inspection, full ROM, tenderness (Palpable left plantar foot tenderness due to heel spur), normal capillary refill. Absent: pedal edema, joint swelling, calf tenderness - Back Exam Back exam: Present: normal inspection, full ROM. Absent: tenderness, CVA tenderness (R), CVA tenderness (L), muscle spasm, paraspinal tenderness, vertebral tenderness - Neurological Exam Neurological exam: Present: alert, oriented X3, CN II-XII intact, normal gait, reflexes normal - Psychiatric Psychiatric exam: Present: normal affect, normal mood - Skin Skin exam: Present: warm, dry, intact, normal color. Absent: rash ED Course Vital Signs 04/17/22 16:27 Temperature 98.3 F Pulse Rate 71 Respiratory 20 Rate Blood Pressure 137/67 [Right] O2 Sat by Pulse 96 Oximetry ED Medical Decision Making - Medical Decision Making This is a 76-year-old male with a history of hypertension and kidney stones who presents to the ED with complaint of acute onset persistent painful left plantar foot due to a calcaneal spur. Patient states that the pain is especially worse with ambulation or weightbearing on the left foot. Patient states that the symptoms have worsened in the last 5 days. In the ED, patient is alert and oriented x3 and is not in any distress. The patient left plantar foot heel spur was trimmed after cleaning the area and dressed appropriately. Patient was discharged home and advised to take his regular pain medications at home and follow-up with the fire marshal in 5 to 7 days for reevaluation. Patient is advised return to the ED immediately if symptoms get worse. - Differential Diagnosis heel spur; plantar fasciitis; muscle strain; Critical care attestation.: If time is entered above; I have spent that time in minutes in the direct care of this critically ill patient, excluding procedure time. ED Disposition Clinical Impression: Localized swelling of left foot, Inferior calcaneal spur of left foot Disposition: HOME / SELF CARE / HOMELESS Is pt being admited?: No Does the pt Need Aspirin: No Condition: Stable Instructions: Heel Spur Additional Instructions: Take your regular medications with food, drink plenty of fluids, follow-up with your primary care physician in 7 to 10 days for reevaluation. Consider following up with the fire marshal in 7 to 10 days for further evaluation. Return to the ED immediately if symptoms get worse. Referrals: SRAVANI ABDUL DPM [Staff Physician] - 3-5 Days Time of Disposition: 21:33 Print Language: MAORI
== END 2022-04-17 21:53 | disposition home or self-care (01) ==
LOC: ED 15:59
DX: M77.32 Calcaneal spur, left foot (principal); M79.89 Other specified soft tissue disorders; I10 Essential (primary) hypertension; Z87.442 Personal history of urinary calculi; Z98.890 Other specified postprocedural states
CPT/HCPCS: 99282